=== PATIENT | male | born 1985 | race Caucasian/White ===

== ENCOUNTER 2019-06-21 21:32 | Emergency (ER) | payer OTHER, MEDICAID, SELFPAY ==
[2019-06-21 21:35] VITALS: BP 127/88; PULSE 82; RESP 24; TEMP 36.9; O2SAT 100; BMI 29.9
--- NOTE | 2019-06-21 21:38 | ED_ITS ---
HPI - General Adult General Chief complaint: Chest Pain Stated complaint: chest tightness,shakey,note feeling well Time Seen by Provider: 06/21/19 21:35 Source: patient Mode of arrival: ambulatory Limitations: no limitations History of Present Illness HPI narrative: 34-year-old male with history of generalized anxiety and depression. He also admits to having history of substance abuse. Was treated earlier today for gonorrhea and Chlamydia with antibiotics. He states that this evening he started having feelings of chest tightness and also feelings of being stabbed in the back of his neck and also feeling like his head is under water. He he states he is concerned about losing consciousness. He has had panic attacks in the past but they have never lasted this long. Describes chest pain and shortness of breath. Has not tried anything for symptoms prior to her Related Data Home Medications Medication Instructions Recorded Confirmed clonidine HCl PO BID #0 08/11/16 pantoprazole [Protonix] PO QDAY #30 tab 08/11/16 Previous Rx's Medication Instructions Recorded cyclobenzaprine 10 mg PO Q8HP PRN #20 tab 08/11/16 cyclobenzaprine 10 mg PO TID PRN #12 tab 06/21/19 Allergies Allergy/AdvReac Type Severity Reaction Status Date / Time cat dander [CAT DANDER] Allergy Unknown Verified 06/21/19 21:42 Sulfa (Sulfonamide Allergy Unknown Verified 06/21/19 21:42 Antibiotics) [SULFA (SULFONAMIDE ANTIBIOTICS)] SEASONAL Allergy Unknown Uncoded 02/20/18 12:13 Review of Systems Constitutional Denies fever(s) and Denies headache(s) ENT Ears, Nose, Mouth, and Throat: Denies headache(s) Cardiovascular Reports chest pain and Reports dyspnea Respiratory Reports dyspnea Gastrointestinal Gastrointestinal: Denies abdominal pain Musculoskeletal Comments: Stabbing pain in his neck Integumentary/Breasts Denies rash Neurologic Denies headache(s) Psychiatric Reports anxiety Hematologic/Lymphatic Denies easy bleeding and Denies easy bruising FOR[facility], LAT[facility] Medical History Anxiety (Acute) Depression (Acute) Substance abuse (Acute) Social History lives independently: Yes Social History lives independently: Yes Exam Initial Vital Signs Initial Vital Signs: Vital Signs Temperature 98.5 F 06/21/19 21:35 Pulse Rate 82 06/21/19 21:35 Respiratory Rate 24 06/21/19 21:35 Blood Pressure 127/88 06/21/19 21:35 Pulse Oximetry 100 06/21/19 21:35 Const General: cooperative, well developed, well groomed and anxious Orientation: alert and awake Resp Effort & Inspection: normal respiratory effort Auscultation: clear to auscultation bilaterally Cardio Rate: tachycardic Rhythm: regular rhythm Pulses: radial pulses present Skin Lesions: no lesions Rashes: no rashes Neuro General: alert and awake Cognition: normal cognition Extrem General: normal to inspection and capillary refill normal Psych Appearance: grossly normal and well kempt Speech and Movement: restless Mood: anxious mood Attitude: cooperative Course Orders Ordered: ED Orders 06/21/19 21:35 EKG-12 Lead Stat Discontinued Medications Lorazepam (Ativan) 1 mg IV NOW ONE Stop: 06/21/19 21:52 Last Admin: 06/21/19 22:03 Dose: 1 mg Vital Signs - 8 hr 06/21/19 21:35 Temperature 98.5 F Pulse Rate 82 Respiratory Rate 24 Blood Pressure 127/88 Pulse Oximetry 100 Medical Decision Making ECG Data Attestation: I personally reviewed and interpreted this ECG as follows: Prior ECG tracings: not available for review Interpretation: Sinus tachycardia Ventricular rate of 103 Normal axis Normal QRS Normal QTC No ST T wave changes MDM Narrative Medical decision making narrative: Patient feels somewhat better after the Ativan. His EKG is unremarkable. Low suspicion for ACS. Low suspicion for PE. The suspicion for pneumonia. He has a clear lung exam. Will hold on further workup for now. I do suspect that his neck pain is musculoskeletal. Will send home with a prepack of Flexeril He was given return precautions. Expressed understanding and agreement with plan. Discharge Plan Departure Patient Disposition: Home Clinical Impression: Chest wall pain, Muscle spasm, Anxiety Instructions: DI for Muscle Spasm Activity Restrictions/Additional Instructions: Take the muscle relaxers as directed. These medications can make you drowsy so no driving while you are taking them. You can also take Tylenol and/or ibuprofen for any discomfort. Contact your primary provider for a follow-up. Return to the emergency department for any new symptoms Prescriptions: New cyclobenzaprine 10 mg tablet 10 mg PO TID PRN (Reason: muscle spasm) Qty: 12 RF: 0 No Action clonidine HCl 0.1 mg tablet PO BID Qty: 0 RF: 0 pantoprazole [Protonix] 20 mg tablet,delayed release (DR/EC) PO QDAY Qty: 30 RF: 0 cyclobenzaprine 10 MG tablet 10 mg PO Q8HP PRNQty: 20 RF: 0
[2019-06-21] MEDS: LORazepam 2 MG/ML INJ 1 MG IV (22:03)
--- NOTE | 2019-06-21 23:30 | PC.NURSE ---
Pt states that he wants to leave, informed pt that due to receiving ativan earlier that he needs a ride and that nursing staff need to see ride. Pt states he is going to leave and wait in his car. Informed pt that this RN cannot agree to that. Dr. Golden informed, security is also aware. [id number]-Pt removed his PIV. Speaking with Dr. Golden. Stating that he is going to leave. [id number]-Pt left with security. Dr Golden aware. Pt left without receiving paperwork or prepack.
== END 2019-06-21 23:50 | disposition left against medical advice (07) ==
PROVIDERS: Emergency Provider Emergency Medicine
DX: M62.838 Other muscle spasm (principal); F41.9 Anxiety disorder, unspecified; R07.9 Chest pain, unspecified; Z53.20 Procedure and treatment not carried out because of patient's decision for unspecified reasons
CPT/HCPCS: 36591; 93005; 93010; 96374; 99282; 99284; J2060

== ENCOUNTER 2021-03-17 14:50 | Emergency (ER) | payer OTHER, MEDICAID, SELFPAY ==
[2021-03-17] VITALS (17 sets, daily range): BP systolic 105–117; BP diastolic 58–75; PULSE 78–107; RESP 16–51; TEMP 36.9; O2SAT 96–100; BMI 23.5
--- NOTE | 2021-03-17 15:59 | DI.RAD.S_ITS ---
PROCEDURE: XR CHEST 1V INDICATIONS: chest pain TECHNIQUE: One view of the chest was acquired. COMPARISON: [facility], , CHEST 1 VIEW, 08/11/2016, 12:57. FINDINGS: Surgical changes and devices: None. Lungs and pleura: Lungs are clear. No pleural effusions or pneumothorax. Mediastinum: Mediastinal contours appear normal. Heart size is normal. Bones and chest wall: No suspicious bony lesions. Overlying soft tissues appear unremarkable. IMPRESSION: No acute disease. Dictated by: Tom Richardson M.D. on 03/17/2021 at 16:18 Approved by: Tom Richardson M.D. on 03/17/2021 at 16:19
--- NOTE | 2021-03-17 16:00 | PC.NURSE ---
pt's father states pt has back pain, is nauseated, and having chest pain. RT called for EKG. IV placed. Chest pain order set placed and made aware
[2021-03-17 16:11] LABS: Add Manual Diff / Slide Review NO; Basophils Absolute Auto 0 /uL (0-100); Basophils Percent Auto 0.2 % (0-2); Eosinophils Absolute Auto 100 /uL (0-450); Hematocrit 39.9 % (41-53); Hemoglobin 13.7 g/dL (13.5-17.5); Lymphocytes Absolute Auto 1500 /uL (1100-4500); Lymphocytes Percent Auto 13.1 % (25-40); Mean Corpuscular HGB Conc 34.2 % (30-36); Mean Corpuscular Hemoglobin 30.1 PG (26-34); Monocytes Absolute Auto 1800 /uL (0-900); Monocytes Percent Auto 15.8 % (3-14); Neutrophils Absolute Auto 7900 /uL (1500-7000); Neutrophils Percent Auto 69.9 % (50-75); Platelet Count 326 X10^3/uL (150-400); Red Blood Cell Count 4.53 X10^6/uL (4.5-5.9); Red Cell Distribution Width 14.3 % (11.6-14.8); White Blood Cell Count 11.4 X10^3/uL (4.5-11.0)
--- NOTE | 2021-03-17 16:14 | ED_ITS ---
HPI - Back Pain/Injury <Alayna Mccarthy DO - Last Filed: 03/18/21 07:07> General Chief Complaint: Back Pain/Injury Stated Complaint: everything hurts, back hurts Time Seen by Provider: 03/17/21 16:00 Source: patient Mode of arrival: Ambulatory Limitations: no limitations History of Present Illness HPI Narrative: Patient is a 35-year-old male who presents with for right id of complaints. He says for about the last 2 weeks he has had body aches all over. He says he just does not feel quite right. He said a couple of days ago the he was putting a car part in when his vision got dark and. He has had some decreased sensation on the left side of his body. He has pins and needles going through his chest. He denies any rigors or sweats. He has no severe cough or shortness of breath. He has been having some blood in his urine off and on for a few days as well. No nausea vomiting or abdominal pain. He travels a lot and lives in his car but is currently staying with his parents. He has an anxiety disorder for which he takes medication for. Onset (ago): week(s) Related Data Home Medications Medication Instructions Recorded Confirmed clonidine HCl PO BID #0 08/11/16 pantoprazole [Protonix] PO QDAY #30 tab 08/11/16 Previous Rx's Medication Instructions Recorded cyclobenzaprine 10 mg PO Q8HP PRN #20 tab 08/11/16 cyclobenzaprine 10 mg PO TID PRN #12 tab 06/21/19 Allergies Allergy/AdvReac Type Severity Reaction Status Date / Time cat dander [CAT DANDER] Allergy Unknown Verified 06/21/19 21:42 Sulfa (Sulfonamide Allergy Unknown Verified 06/21/19 21:42 Antibiotics) [SULFA (SULFONAMIDE ANTIBIOTICS)] SEASONAL Allergy Unknown Uncoded 02/20/18 12:13 Review of Systems <DO Carissa Le Last Filed: 03/18/21 07:07> Review of Systems ROS Unobtainable: All systems reviewed & are unremarkable except as noted in HPI and below Constitutional Constitutional: Reports body ache(s), Denies chills, Denies fever(s), Reports headache(s) and Denies weakness Eyes Eyes: Reports other visual disturbances (Blackening that lasted just a few s econds 2 days ago) ENT Ears, Nose, Mouth, and Throat: Reports headache(s), Denies nose pain and Denies sore throat Cardiovascular Cardiovascular: Reports chest pain, Denies irregular heart rhythm, Denies lightheadedness, Denies palpitations, Denies dyspnea, Denies dyspnea on exertion and Denies orthopnea Respiratory Respiratory: Denies cough, Denies dyspnea, Denies dyspnea on exertion and Denies wheezing Gastrointestinal Gastrointestinal: Denies abdominal pain, Denies change in bowel habits, Denies diarrhea, Denies nausea and Denies vomiting Musculoskeletal Musculoskeletal: Denies back pain and Denies myalgias Integumentary/Breasts Skin/Breast: Denies pruritus, Denies erythema, Denies rash and Denies wounds Neurologic Neurologic: Reports headache(s), Reports sensory deficit and Denies weakness Endocrine Endocrine: Denies palpitations Allergic/Immunologic Allergic/Immunologic: Denies wheezing Patient History <Alayna Mccarthy DO - Last Filed: 03/18/21 07:07> Medical History (Updated 03/17/21 @ 23:51 by Tiki Yang MD) Anxiety Depression Substance abuse Social History lives independently: Yes Smoking Status: Current every day smoker Smoking Status: Current every day smoker tobacco type: cigarettes Substance Use Type: marijuana Exam <Alayna Mccarthy DO - Last Filed: 03/18/21 07:07> Initial Vital Signs Initial Vital Signs: Vital Signs Temperature 98.4 F 03/17/21 14:57 Pulse Rate 100 H 03/17/21 14:57 Respiratory Rate 16 03/17/21 14:57 Blood Pressure 115/73 03/17/21 14:57 Pulse Oximetry 100 03/17/21 14:57 GENERAL: Slightly does shuffled 35-year-old male and in no acute distress. HEENT: Head atraumatic,EOMI, pupils reactive, face symmetric, moist mucous membranes, no Kernig or Brudzinski sign CARDIOVASCULAR: Regular rate and rhythm without murmurs, rubs or gallops. RESPIRATORY: Breath sounds equal bilaterally, no wheezes rales or rhonchi. ABDOMEN: Soft, nontender. Normoactive bowel sounds all 4 quadrants. No guardin g or rebound. EXTREMITIES: Normal range of motion, no clubbing or edema. Neurovascularly intact NEUROLOGICAL: Alert and oriented x4.Normal gait and speech. Cranial nerves II through XII grossly intact. Good [id number], good [id number], strength equal bilaterally, no dysarthria or aphasia, slight decreased sensation to light touch on left side, no visual changes, no facial droop SKIN: Warm, dry, no laceration, no petechiae, no rashes or lesions. <Mikey Golden DO - Last Filed: 03/17/21 19:27> Initial Vital Signs Initial Vital Signs: Vital Signs Temperature 98.4 F 03/17/21 14:57 Pulse Rate 100 H 03/17/21 14:57 Respiratory Rate 16 03/17/21 14:57 Blood Pressure 115/73 03/17/21 14:57 Pulse Oximetry 100 03/17/21 14:57 <Tiki Yang MD - Last Filed: 03/18/21 01:04> Initial Vital Signs Initial Vital Signs: Vital Signs Temperature 98.4 F 03/17/21 14:57 Pulse Rate 100 H 03/17/21 14:57 Respiratory Rate 16 03/17/21 14:57 Blood Pressure 115/73 03/17/21 14:57 Pulse Oximetry 100 03/17/21 14:57 Course <Alayna Mccarthy DO - Last Filed: 03/18/21 07:07> Orders Ordered: ED Orders 03/17/21 22:56 CT angio head and neck Stat Discontinued Medications Azithromycin (Azithromycin 250 Mg Tablet) 1,000 mg PO NOW ONE Stop: 03/17/21 19:13 Last Admin: 03/17/21 19:18 Dose: 1,000 mg Documented by: JESSIE Ceftriaxone Sodium/Dextrose (Rocephin) 1 gm in 50 mls @ 100 mls/hr IV NOW ONE Stop: 03/17/21 17:18 Last Infusion: 03/17/21 17:27 Dose: 0 mls/hr Documented by: Admin: 03/17/21 16:57 Dose: 100 mls/hr Documented by: ALISON Ketorolac Tromethamine (Ketorolac 30 Mg/Ml Vial) 15 mg IV NOW ONE Stop: 03/17/21 16:15 Last Admin: 03/17/21 16:29 Dose: 15 mg Documented by: JGODFREY Ondansetron HCl (Ondansetron 4 Mg/2 Ml Inj) 4 mg IV NOW ONE Stop: 03/17/21 20:47 Last Admin: 03/17/21 20:48 Dose: Not Given Documented by: JESSIE Vital Signs Vital signs: Vital Signs - 8 hr 03/17/21 23:30 03/18/21 00:00 03/18/21 01:14 Pulse Rate 86 95 H 95 H Blood Pressure 105/74 Pulse Oximetry 100 100 99 <Mikey Golden DO - Last Filed: 03/17/21 19:27> Orders Ordered: ED Orders 03/17/21 22:56 CT angio head and neck Stat Discontinued Medications Azithromycin (Azithromycin 250 Mg Tablet) 1,000 mg PO NOW ONE Stop: 03/17/21 19:13 Last Admin: 03/17/21 19:18 Dose: 1,000 mg Documented by: JESSIE Ceftriaxone Sodium/Dextrose (Rocephin) 1 gm in 50 mls @ 100 mls/hr IV NOW ONE Stop: 03/17/21 17:18 Last Infusion: 03/17/21 17:27 Dose: 0 mls/hr Documented by: Admin: 03/17/21 16:57 Dose: 100 mls/hr Documented by: ALISON Ketorolac Tromethamine (Ketorolac 30 Mg/Ml Vial) 15 mg IV NOW ONE Stop: 03/17/21 16:15 Last Admin: 03/17/21 16:29 Dose: 15 mg Documented by: JESSIE Ondansetron HCl (Ondansetron 4 Mg/2 Ml Inj) 4 mg IV NOW ONE Stop: 03/17/21 20:47 Last Admin: 03/17/21 20:48 Dose: Not Given Documented by: JESSIE Vital Signs Vital signs: Vital Signs - 8 hr 03/17/21 23:30 03/18/21 00:00 03/18/21 01:14 Pulse Rate 86 95 H 95 H Blood Pressure 105/74 Pulse Oximetry 100 100 99 <Tiki Yang MD - Last Filed: 03/18/21 01:04> Orders Ordered: ED Orders 03/17/21 22:56 CT angio head and neck Stat Discontinued Medications Azithromycin (Azithromycin 250 Mg Tablet) 1,000 mg PO NOW ONE Stop: 03/17/21 19:13 Last Admin: 03/17/21 19:18 Dose: 1,000 mg Documented by: JESSIE Ceftriaxone Sodium/Dextrose (Rocephin) 1 gm in 50 mls @ 100 mls/hr IV NOW ONE Stop: 03/17/21 17:18 Last Infusion: 03/17/21 17:27 Dose: 0 mls/hr Documented by: Admin: 03/17/21 16:57 Dose: 100 mls/hr Documented by: ALISON Ketorolac Tromethamine (Ketorolac 30 Mg/Ml Vial) 15 mg IV NOW ONE Stop: 03/17/21 16:15 Last Admin: 03/17/21 16:29 Dose: 15 mg Documented by: JESSIE Ondansetron HCl (Ondansetron 4 Mg/2 Ml Inj) 4 mg IV NOW ONE Stop: 03/17/21 20:47 Last Admin: 03/17/21 20:48 Dose: Not Given Documented by: JESSIE Vital Signs Vital signs: Vital Signs - 8 hr 03/17/21 23:30 03/18/21 00:00 03/18/21 01:14 Pulse Rate 86 95 H 95 H Blood Pressure 105/74 Pulse Oximetry 100 100 99 MDM - Back Pain/Injury <Alayna Mccarthy DO - Last Filed: 03/18/21 07:07> Lab Data Result diagrams: 03/17/21 15:57 03/17/21 15:57 Labs: Lab Results 03/17/21 03/17/21 03/17/21 Range/Units 15:57 15:57 15:57 WBC 11.4 H (4.5-11.0) X10^3/uL RBC 4.53 (4.5-5.9) X10^6/uL Hgb 13.7 (13.5-17.5) g/dL Hct 39.9 L (41-53) % MCV 88.0 (80-100) fL MCH 30.1 (26-34) PG MCHC 34.2 (30-36) % RDW 14.3 (11.6-14.8) % Plt Count 326 (150-400) X10^3/uL Neut % (Auto) 69.9 (50-75) % Lymph % (Auto) 13.1 L (25-40) % [place] % (Auto) 15.8 H (3-14) % Eos % (Auto) 1.0 L (2-4) % Baso % (Auto) 0.2 (0-2) % Neut # (Auto) 7900 H (0984-6798) /uL Lymph # (Auto) 1500 (5640-7144) /uL [place] # (Auto) 1800 H (0-900) /uL Eos # (Auto) 100 (0-450) /uL Baso # (Auto) 0 (0-100) /uL PT 14.6 H (10.1-12.7) SECONDS INR 1.3 (0.9-1.3) APTT 37 H (26.4-36.2) SECONDS Sodium 133 L (137-145) mmol/L Potassium 3.8 (3.4-5.1) mmol/L Chloride 98 (98-107) mmol/L Carbon Dioxide 25 (22-32) mmol/L BUN 14 (9-20) mg/dL Creatinine 0.79 (0.66-1.25) mg/dL Estimated GFR > 60.0 (>60) mL/min BUN/Creatinine Ratio 17.7 (6-22) Glucose 101 H (70-100) mg/dL Lactate (0.7-2.1) mmol/L Calcium 9.0 (8.4-10.2) mg/dL Total Bilirubin 0.6 (0.2-1.3) mg/dL AST 23 (17-59) IU/L ALT 27 (<50) IU/L Alkaline Phosphatase 97 (38-126) U/L Total Creatine Kinase 39 L (55-170) U/L CK-MB (CK-2) TNP CK-MB (CK-2) Rel Index TNP Troponin I < 0.012 (0.01-0.034) ng/mL C-Reactive Protein (<1.0) mg/dL Total Protein 7.2 (6.3-8.2) g/dL Albumin 3.7 (3.5-5.0) g/dL Globulin 3.5 (1.7-4.1) g/dL Albumin/Globulin Ratio 1.1 (1.0-2.8) Lipase 104 (23-300) U/L Procalcitonin (<0.5) ng/mL Urine Color Urine Appearance Urine pH (4.5-8.0) Ur Specific [place] (1.000-1.035) Urine Protein (Negative) Urine Glucose (UA) (Negative) g/dL Urine Ketones (NEGATIVE) Urine Occult Blood (Negative) Urine Nitrate (Negative) Urine Bilirubin (NEGATIVE) Urine Urobilinogen (0.2) E.U./dL Ur Leukocyte Esterase (NEGATIVE) Urine RBC (0-5/HPF) Urine WBC (0-5/HPF) Ur Squamous Epith Cells (0-5/HPF) Urine Bacteria (None) Ur Culture Indicated? U Opiates 300ng/mL cut (Negative) Ur Oxycodone Screen (Negative) Urine Methadone Screen (Negative) Ur Barbiturates Screen (Negative) U Tricyclic Antidepress (Negative) Ur Phencyclidine Scrn (Negative) Ur Amphetamines Screen (Negative) U Methamphetamines Scrn (Negative) Ur MDMA Scrn (Ecstasy) (Negative) U Benzodiazepines Scrn (Negative) Urine Cocaine Screen (Negative) U Marijuana (THC) Screen (Negative) Ur Chlamydia DNA (PCR) SARS-CoV-2 (PCR) (Negative) N gonorrhoeae DNA (PCR) 03/17/21 03/17/21 03/17/21 Range/Units 15:57 15:57 15:57 WBC (4.5-11.0) X10^3/uL RBC (4.5-5.9) X10^6/uL Hgb (13.5-17.5) g/dL Hct (41-53) % MCV (80-100) fL MCH (26-34) PG MCHC (30-36) % RDW (11.6-14.8) % Plt Count (150-400) X10^3/uL Neut % (Auto) (50-75) % Lymph % (Auto) (25-40) % [place] % (Auto) (3-14) % Eos % (Auto) (2-4) % Baso % (Auto) (0-2) % Neut # (Auto) (6245-6851) /uL Lymph # (Auto) (5857-2697) /uL [place] # (Auto) (0-900) /uL Eos # (Auto) (0-450) /uL Baso # (Auto) (0-100) /uL PT (10.1-12.7) SECONDS INR (0.9-1.3) APTT (26.4-36.2) SECONDS Sodium (137-145) mmol/L Potassium (3.4-5.1) mmol/L Chloride (98-107) mmol/L Carbon Dioxide (22-32) mmol/L BUN (9-20) mg/dL Creatinine (0.66-1.25) mg/dL Estimated GFR (>60) mL/min BUN/Creatinine Ratio (6-22) Glucose (70-100) mg/dL Lactate 1.0 (0.7-2.1) mmol/L Calcium (8.4-10.2) mg/dL Total Bilirubin (0.2-1.3) mg/dL AST (17-59) IU/L ALT (<50) IU/L Alkaline Phosphatase (38-126) U/L Total Creatine Kinase (55-170) U/L CK-MB (CK-2) CK-MB (CK-2) Rel Index Troponin I (0.01-0.034) ng/mL C-Reactive Protein 36.5 H (<1.0) mg/dL Total Protein (6.3-8.2) g/dL Albumin (3.5-5.0) g/dL Globulin (1.7-4.1) g/dL Albumin/Globulin Ratio (1.0-2.8) Lipase (23-300) U/L Procalcitonin 0.47 (<0.5) ng/mL Urine Color Urine Appearance Urine pH (4.5-8.0) Ur Specific [place] (1.000-1.035) Urine Protein (Negative) Urine Glucose (UA) (Negative) g/dL Urine Ketones (NEGATIVE) Urine Occult Blood (Negative) Urine Nitrate (Negative) Urine Bilirubin (NEGATIVE) Urine Urobilinogen (0.2) E.U./dL Ur Leukocyte Esterase (NEGATIVE) Urine RBC (0-5/HPF) Urine WBC (0-5/HPF) Ur Squamous Epith Cells (0-5/HPF) Urine Bacteria (None) Ur Culture Indicated? U Opiates 300ng/mL cut (Negative) Ur Oxycodone Screen (Negative) Urine Methadone Screen (Negative) Ur Barbiturates Screen (Negative) U Tricyclic Antidepress (Negative) Ur Phencyclidine Scrn (Negative) Ur Amphetamines Screen (Negative) U Methamphetamines Scrn (Negative) Ur MDMA Scrn (Ecstasy) (Negative) U Benzodiazepines Scrn (Negative) Urine Cocaine Screen (Negative) U Marijuana (THC) Screen (Negative) Ur Chlamydia DNA (PCR) SARS-CoV-2 (PCR) (Negative) N gonorrhoeae DNA (PCR) 03/17/21 03/17/21 03/17/21 Range/Units 16:30 16:30 16:46 WBC (4.5-11.0) X10^3/uL RBC (4.5-5.9) X10^6/uL Hgb (13.5-17.5) g/dL Hct (41-53) % MCV (80-100) fL MCH (26-34) PG MCHC (30-36) % RDW (11.6-14.8) % Plt Count (150-400) X10^3/uL Neut % (Auto) (50-75) % Lymph % (Auto) (25-40) % [place] % (Auto) (3-14) % Eos % (Auto) (2-4) % Baso % (Auto) (0-2) % Neut # (Auto) (8937-6154) /uL Lymph # (Auto) (9847-0429) /uL [place] # (Auto) (0-900) /uL Eos # (Auto) (0-450) /uL Baso # (Auto) (0-100) /uL PT (10.1-12.7) SECONDS INR (0.9-1.3) APTT (26.4-36.2) SECONDS Sodium (137-145) mmol/L Potassium (3.4-5.1) mmol/L Chloride (98-107) mmol/L Carbon Dioxide (22-32) mmol/L BUN (9-20) mg/dL Creatinine (0.66-1.25) mg/dL Estimated GFR (>60) mL/min BUN/Creatinine Ratio (6-22) Glucose (70-100) mg/dL Lactate (0.7-2.1) mmol/L Calcium (8.4-10.2) mg/dL Total Bilirubin (0.2-1.3) mg/dL AST (17-59) IU/L ALT (<50) IU/L Alkaline Phosphatase (38-126) U/L Total Creatine Kinase (55-170) U/L CK-MB (CK-2) CK-MB (CK-2) Rel Index Troponin I (0.01-0.034) ng/mL C-Reactive Protein (<1.0) mg/dL Total Protein (6.3-8.2) g/dL Albumin (3.5-5.0) g/dL Globulin (1.7-4.1) g/dL Albumin/Globulin Ratio (1.0-2.8) Lipase (23-300) U/L Procalcitonin (<0.5) ng/mL Urine Color Yellow Urine Appearance Cloudy Urine pH 6.5 (4.5-8.0) Ur Specific [place] 1.010 (1.000-1.035) Urine Protein 1+ H (Negative) Urine Glucose (UA) Negative (Negative) g/dL Urine Ketones Negative (NEGATIVE) Urine Occult Blood 1+ H (Negative) Urine Nitrate Positive (Negative) Urine Bilirubin Negative (NEGATIVE) Urine Urobilinogen 2.0 H (0.2) E.U./dL Ur Leukocyte Esterase 2+ H (NEGATIVE) Urine RBC 0-1/hpf (0-5/HPF) Urine WBC >100/hpf H (0-5/HPF) Ur Squamous Epith Cells 0-1 /hpf (0-5/HPF) Urine Bacteria Many (>30) H (None) Ur Culture Indicated? Specimen cultured U Opiates 300ng/mL cut Negative (Negative) Ur Oxycodone Screen Negative (Negative) Urine Methadone Screen Negative (Negative) Ur Barbiturates Screen Negative (Negative) U Tricyclic Antidepress Negative (Negative) Ur Phencyclidine Scrn Negative (Negative) Ur Amphetamines Screen Positive H (Negative) U Methamphetamines Scrn Positive H (Negative) Ur MDMA Scrn (Ecstasy) Negative (Negative) U Benzodiazepines Scrn Negative (Negative) Urine Cocaine Screen Negative (Negative) U Marijuana (THC) Screen Negative (Negative) Ur Chlamydia DNA (PCR) Cancelled SARS-CoV-2 (PCR) (Negative) N gonorrhoeae DNA (PCR) Cancelled 03/17/21 Range/Units 18:10 WBC (4.5-11.0) X10^3/uL RBC (4.5-5.9) X10^6/uL Hgb (13.5-17.5) g/dL Hct (41-53) % MCV (80-100) fL MCH (26-34) PG MCHC (30-36) % RDW (11.6-14.8) % Plt Count (150-400) X10^3/uL Neut % (Auto) (50-75) % Lymph % (Auto) (25-40) % [place] % (Auto) (3-14) % Eos % (Auto) (2-4) % Baso % (Auto) (0-2) % Neut # (Auto) (3086-1269) /uL Lymph # (Auto) (8415-8386) /uL [place] # (Auto) (0-900) /uL Eos # (Auto) (0-450) /uL Baso # (Auto) (0-100) /uL PT (10.1-12.7) SECONDS INR (0.9-1.3) APTT (26.4-36.2) SECONDS Sodium (137-145) mmol/L Potassium (3.4-5.1) mmol/L Chloride (98-107) mmol/L Carbon Dioxide (22-32) mmol/L BUN (9-20) mg/dL Creatinine (0.66-1.25) mg/dL Estimated GFR (>60) mL/min BUN/Creatinine Ratio (6-22) Glucose (70-100) mg/dL Lactate (0.7-2.1) mmol/L Calcium (8.4-10.2) mg/dL Total Bilirubin (0.2-1.3) mg/dL AST (17-59) IU/L ALT (<50) IU/L Alkaline Phosphatase (38-126) U/L Total Creatine Kinase (55-170) U/L CK-MB (CK-2) CK-MB (CK-2) Rel Index Troponin I (0.01-0.034) ng/mL C-Reactive Protein (<1.0) mg/dL Total Protein (6.3-8.2) g/dL Albumin (3.5-5.0) g/dL Globulin (1.7-4.1) g/dL Albumin/Globulin Ratio (1.0-2.8) Lipase (23-300) U/L Procalcitonin (<0.5) ng/mL Urine Color Urine Appearance Urine pH (4.5-8.0) Ur Specific [place] (1.000-1.035) Urine Protein (Negative) Urine Glucose (UA) (Negative) g/dL Urine Ketones (NEGATIVE) Urine Occult Blood (Negative) Urine Nitrate (Negative) Urine Bilirubin (NEGATIVE) Urine Urobilinogen (0.2) E.U./dL Ur Leukocyte Esterase (NEGATIVE) Urine RBC (0-5/HPF) Urine WBC (0-5/HPF) Ur Squamous Epith Cells (0-5/HPF) Urine Bacteria (None) Ur Culture Indicated? U Opiates 300ng/mL cut (Negative) Ur Oxycodone Screen (Negative) Urine Methadone Screen (Negative) Ur Barbiturates Screen (Negative) U Tricyclic Antidepress (Negative) Ur Phencyclidine Scrn (Negative) Ur Amphetamines Screen (Negative) U Methamphetamines Scrn (Negative) Ur MDMA Scrn (Ecstasy) (Negative) U Benzodiazepines Scrn (Negative) Urine Cocaine Screen (Negative) U Marijuana (THC) Screen (Negative) Ur Chlamydia DNA (PCR) SARS-CoV-2 (PCR) Negative (Negative) N gonorrhoeae DNA (PCR) MDM Narrative Medical decision making narrative: Patient has a variety of vague symptoms. He currently has nitrates in his urine with UTI like symptoms he is given 1 dose of Rocephin. His rest of blood work and imaging are pending. Patient is signed out to Dr. Golden. 03/18/21-I have reviewed chart of events that transpired last evening. Patient was not sent home with antibiotics. Patient was called this morning and started on Bactrim. Culture and sensitivity pending. Patient has elevated CRP and procalcitonin within obvious UTI gonorrhea chlamydia are pending he was treated for those with azithromycin and Rocephin. However will continue antibiotics untill further results <Mikey Golden DO - Last Filed: 03/17/21 19:27> Lab Data Labs: Lab Results 03/17/21 03/17/21 03/17/21 Range/Units 15:57 15:57 15:57 WBC 11.4 H (4.5-11.0) X10^3/uL RBC 4.53 (4.5-5.9) X10^6/uL Hgb 13.7 (13.5-17.5) g/dL Hct 39.9 L (41-53) % MCV 88.0 (80-100) fL MCH 30.1 (26-34) PG MCHC 34.2 (30-36) % RDW 14.3 (11.6-14.8) % Plt Count 326 (150-400) X10^3/uL Neut % (Auto) 69.9 (50-75) % Lymph % (Auto) 13.1 L (25-40) % [place] % (Auto) 15.8 H (3-14) % Eos % (Auto) 1.0 L (2-4) % Baso % (Auto) 0.2 (0-2) % Neut # (Auto) 7900 H (7522-4424) /uL Lymph # (Auto) 1500 (1352-5768) /uL [place] # (Auto) 1800 H (0-900) /uL Eos # (Auto) 100 (0-450) /uL Baso # (Auto) 0 (0-100) /uL PT 14.6 H (10.1-12.7) SECONDS INR 1.3 (0.9-1.3) APTT 37 H (26.4-36.2) SECONDS Sodium 133 L (137-145) mmol/L Potassium 3.8 (3.4-5.1) mmol/L Chloride 98 (98-107) mmol/L Carbon Dioxide 25 (22-32) mmol/L BUN 14 (9-20) mg/dL Creatinine 0.79 (0.66-1.25) mg/dL Estimated GFR > 60.0 (>60) mL/min BUN/Creatinine Ratio 17.7 (6-22) Glucose 101 H (70-100) mg/dL Lactate (0.7-2.1) mmol/L Calcium 9.0 (8.4-10.2) mg/dL Total Bilirubin 0.6 (0.2-1.3) mg/dL AST 23 (17-59) IU/L ALT 27 (<50) IU/L Alkaline Phosphatase 97 (38-126) U/L Total Creatine Kinase 39 L (55-170) U/L CK-MB (CK-2) TNP CK-MB (CK-2) Rel Index TNP Troponin I < 0.012 (0.01-0.034) ng/mL C-Reactive Protein (<1.0) mg/dL Total Protein 7.2 (6.3-8.2) g/dL Albumin 3.7 (3.5-5.0) g/dL Globulin 3.5 (1.7-4.1) g/dL Albumin/Globulin Ratio 1.1 (1.0-2.8) Lipase 104 (23-300) U/L Procalcitonin (<0.5) ng/mL Urine Color Urine Appearance Urine pH (4.5-8.0) Ur Specific [place] (1.000-1.035) Urine Protein (Negative) Urine Glucose (UA) (Negative) g/dL Urine Ketones (NEGATIVE) Urine Occult Blood (Negative) Urine Nitrate (Negative) Urine Bilirubin (NEGATIVE) Urine Urobilinogen (0.2) E.U./dL Ur Leukocyte Esterase (NEGATIVE) Urine RBC (0-5/HPF) Urine WBC (0-5/HPF) Ur Squamous Epith Cells (0-5/HPF) Urine Bacteria (None) Ur Culture Indicated? U Opiates 300ng/mL cut (Negative) Ur Oxycodone Screen (Negative) Urine Methadone Screen (Negative) Ur Barbiturates Screen (Negative) U Tricyclic Antidepress (Negative) Ur Phencyclidine Scrn (Negative) Ur Amphetamines Screen (Negative) U Methamphetamines Scrn (Negative) Ur MDMA Scrn (Ecstasy) (Negative) U Benzodiazepines Scrn (Negative) Urine Cocaine Screen (Negative) U Marijuana (THC) Screen (Negative) Ur Chlamydia DNA (PCR) SARS-CoV-2 (PCR) (Negative) N gonorrhoeae DNA (PCR) 03/17/21 03/17/21 03/17/21 Range/Units 15:57 15:57 15:57 WBC (4.5-11.0) X10^3/uL RBC (4.5-5.9) X10^6/uL Hgb (13.5-17.5) g/dL Hct (41-53) % MCV (80-100) fL MCH (26-34) PG MCHC (30-36) % RDW (11.6-14.8) % Plt Count (150-400) X10^3/uL Neut % (Auto) (50-75) % Lymph % (Auto) (25-40) % [place] % (Auto) (3-14) % Eos % (Auto) (2-4) % Baso % (Auto) (0-2) % Neut # (Auto) (9455-9452) /uL Lymph # (Auto) (6760-4797) /uL [place] # (Auto) (0-900) /uL Eos # (Auto) (0-450) /uL Baso # (Auto) (0-100) /uL PT (10.1-12.7) SECONDS INR (0.9-1.3) APTT (26.4-36.2) SECONDS Sodium (137-145) mmol/L Potassium (3.4-5.1) mmol/L Chloride (98-107) mmol/L Carbon Dioxide (22-32) mmol/L BUN (9-20) mg/dL Creatinine (0.66-1.25) mg/dL Estimated GFR (>60) mL/min BUN/Creatinine Ratio (6-22) Glucose (70-100) mg/dL Lactate 1.0 (0.7-2.1) mmol/L Calcium (8.4-10.2) mg/dL Total Bilirubin (0.2-1.3) mg/dL AST (17-59) IU/L ALT (<50) IU/L Alkaline Phosphatase (38-126) U/L Total Creatine Kinase (55-170) U/L CK-MB (CK-2) CK-MB (CK-2) Rel Index Troponin I (0.01-0.034) ng/mL C-Reactive Protein 36.5 H (<1.0) mg/dL Total Protein (6.3-8.2) g/dL Albumin (3.5-5.0) g/dL Globulin (1.7-4.1) g/dL Albumin/Globulin Ratio (1.0-2.8) Lipase (23-300) U/L Procalcitonin 0.47 (<0.5) ng/mL Urine Color Urine Appearance Urine pH (4.5-8.0) Ur Specific [place] (1.000-1.035) Urine Protein (Negative) Urine Glucose (UA) (Negative) g/dL Urine Ketones (NEGATIVE) Urine Occult Blood (Negative) Urine Nitrate (Negative) Urine Bilirubin (NEGATIVE) Urine Urobilinogen (0.2) E.U./dL Ur Leukocyte Esterase (NEGATIVE) Urine RBC (0-5/HPF) Urine WBC (0-5/HPF) Ur Squamous Epith Cells (0-5/HPF) Urine Bacteria (None) Ur Culture Indicated? U Opiates 300ng/mL cut (Negative) Ur Oxycodone Screen (Negative) Urine Methadone Screen (Negative) Ur Barbiturates Screen (Negative) U Tricyclic Antidepress (Negative) Ur Phencyclidine Scrn (Negative) Ur Amphetamines Screen (Negative) U Methamphetamines Scrn (Negative) Ur MDMA Scrn (Ecstasy) (Negative) U Benzodiazepines Scrn (Negative) Urine Cocaine Screen (Negative) U Marijuana (THC) Screen (Negative) Ur Chlamydia DNA (PCR) SARS-CoV-2 (PCR) (Negative) N gonorrhoeae DNA (PCR) 03/17/21 03/17/21 03/17/21 Range/Units 16:30 16:30 16:46 WBC (4.5-11.0) X10^3/uL RBC (4.5-5.9) X10^6/uL Hgb (13.5-17.5) g/dL Hct (41-53) % MCV (80-100) fL MCH (26-34) PG MCHC (30-36) % RDW (11.6-14.8) % Plt Count (150-400) X10^3/uL Neut % (Auto) (50-75) % Lymph % (Auto) (25-40) % [place] % (Auto) (3-14) % Eos % (Auto) (2-4) % Baso % (Auto) (0-2) % Neut # (Auto) (0977-7574) /uL Lymph # (Auto) (6268-7901) /uL [place] # (Auto) (0-900) /uL Eos # (Auto) (0-450) /uL Baso # (Auto) (0-100) /uL PT (10.1-12.7) SECONDS INR (0.9-1.3) APTT (26.4-36.2) SECONDS Sodium (137-145) mmol/L Potassium (3.4-5.1) mmol/L Chloride (98-107) mmol/L Carbon Dioxide (22-32) mmol/L BUN (9-20) mg/dL Creatinine (0.66-1.25) mg/dL Estimated GFR (>60) mL/min BUN/Creatinine Ratio (6-22) Glucose (70-100) mg/dL Lactate (0.7-2.1) mmol/L Calcium (8.4-10.2) mg/dL Total Bilirubin (0.2-1.3) mg/dL AST (17-59) IU/L ALT (<50) IU/L Alkaline Phosphatase (38-126) U/L Total Creatine Kinase (55-170) U/L CK-MB (CK-2) CK-MB (CK-2) Rel Index Troponin I (0.01-0.034) ng/mL C-Reactive Protein (<1.0) mg/dL Total Protein (6.3-8.2) g/dL Albumin (3.5-5.0) g/dL Globulin (1.7-4.1) g/dL Albumin/Globulin Ratio (1.0-2.8) Lipase (23-300) U/L Procalcitonin (<0.5) ng/mL Urine Color Yellow Urine Appearance Cloudy Urine pH 6.5 (4.5-8.0) Ur Specific [place] 1.010 (1.000-1.035) Urine Protein 1+ H (Negative) Urine Glucose (UA) Negative (Negative) g/dL Urine Ketones Negative (NEGATIVE) Urine Occult Blood 1+ H (Negative) Urine Nitrate Positive (Negative) Urine Bilirubin Negative (NEGATIVE) Urine Urobilinogen 2.0 H (0.2) E.U./dL Ur Leukocyte Esterase 2+ H (NEGATIVE) Urine RBC 0-1/hpf (0-5/HPF) Urine WBC >100/hpf H (0-5/HPF) Ur Squamous Epith Cells 0-1 /hpf (0-5/HPF) Urine Bacteria Many (>30) H (None) Ur Culture Indicated? Specimen cultured U Opiates 300ng/mL cut Negative (Negative) Ur Oxycodone Screen Negative (Negative) Urine Methadone Screen Negative (Negative) Ur Barbiturates Screen Negative (Negative) U Tricyclic Antidepress Negative (Negative) Ur Phencyclidine Scrn Negative (Negative) Ur Amphetamines Screen Positive H (Negative) U Methamphetamines Scrn Positive H (Negative) Ur MDMA Scrn (Ecstasy) Negative (Negative) U Benzodiazepines Scrn Negative (Negative) Urine Cocaine Screen Negative (Negative) U Marijuana (THC) Screen Negative (Negative) Ur Chlamydia DNA (PCR) Cancelled SARS-CoV-2 (PCR) (Negative) N gonorrhoeae DNA (PCR) Cancelled 03/17/21 Range/Units 18:10 WBC (4.5-11.0) X10^3/uL RBC (4.5-5.9) X10^6/uL Hgb (13.5-17.5) g/dL Hct (41-53) % MCV (80-100) fL MCH (26-34) PG MCHC (30-36) % RDW (11.6-14.8) % Plt Count (150-400) X10^3/uL Neut % (Auto) (50-75) % Lymph % (Auto) (25-40) % [place] % (Auto) (3-14) % Eos % (Auto) (2-4) % Baso % (Auto) (0-2) % Neut # (Auto) (0214-9336) /uL Lymph # (Auto) (6484-2987) /uL [place] # (Auto) (0-900) /uL Eos # (Auto) (0-450) /uL Baso # (Auto) (0-100) /uL PT (10.1-12.7) SECONDS INR (0.9-1.3) APTT (26.4-36.2) SECONDS Sodium (137-145) mmol/L Potassium (3.4-5.1) mmol/L Chloride (98-107) mmol/L Carbon Dioxide (22-32) mmol/L BUN (9-20) mg/dL Creatinine (0.66-1.25) mg/dL Estimated GFR (>60) mL/min BUN/Creatinine Ratio (6-22) Glucose (70-100) mg/dL Lactate (0.7-2.1) mmol/L Calcium (8.4-10.2) mg/dL Total Bilirubin (0.2-1.3) mg/dL AST (17-59) IU/L ALT (<50) IU/L Alkaline Phosphatase (38-126) U/L Total Creatine Kinase (55-170) U/L CK-MB (CK-2) CK-MB (CK-2) Rel Index Troponin I (0.01-0.034) ng/mL C-Reactive Protein (<1.0) mg/dL Total Protein (6.3-8.2) g/dL Albumin (3.5-5.0) g/dL Globulin (1.7-4.1) g/dL Albumin/Globulin Ratio (1.0-2.8) Lipase (23-300) U/L Procalcitonin (<0.5) ng/mL Urine Color Urine Appearance Urine pH (4.5-8.0) Ur Specific [place] (1.000-1.035) Urine Protein (Negative) Urine Glucose (UA) (Negative) g/dL Urine Ketones (NEGATIVE) Urine Occult Blood (Negative) Urine Nitrate (Negative) Urine Bilirubin (NEGATIVE) Urine Urobilinogen (0.2) E.U./dL Ur Leukocyte Esterase (NEGATIVE) Urine RBC (0-5/HPF) Urine WBC (0-5/HPF) Ur Squamous Epith Cells (0-5/HPF) Urine Bacteria (None) Ur Culture Indicated? U Opiates 300ng/mL cut (Negative) Ur Oxycodone Screen (Negative) Urine Methadone Screen (Negative) Ur Barbiturates Screen (Negative) U Tricyclic Antidepress (Negative) Ur Phencyclidine Scrn (Negative) Ur Amphetamines Screen (Negative) U Methamphetamines Scrn (Negative) Ur MDMA Scrn (Ecstasy) (Negative) U Benzodiazepines Scrn (Negative) Urine Cocaine Screen (Negative) U Marijuana (THC) Screen (Negative) Ur Chlamydia DNA (PCR) SARS-CoV-2 (PCR) Negative (Negative) N gonorrhoeae DNA (PCR) Imaging Data Chest x-ray: Radiologist's Impression: No acute disease CT scan - head: Radiologist's Impression: Ill-defined hypodensities in the frontal subcortical white matter may in fact be artifactual. However given the patient's age in symptoms, follow-up MRI could be considered to exclude underlying white matter disease such as vasculitis or less likely encephalitis MDM Narrative Medical decision making narrative: Dr Golden: Received turned over from Dr. Mccarthy. Reviewed patient's history and physical. He has received Rocephin for urinary tract infection. His chest x-ray is unremarkable. His head CT shows abnormalities which could be artifactual given his other presenting symptoms I do feel that an MRI is warranted. We are able to get that this evening from the emergency department. I did discuss this with the patient. We did discuss the findings on the CT scan. Care turned over to Dr. yang to follow-up with MRI result and disposition. <Tiki Yang MD - Last Filed: 03/18/21 01:04> Medical Records Attestation: I reviewed the patient's medical records. Lab Data Attestation: I reviewed the patient's lab results. Labs: Lab Results 03/17/21 03/17/21 03/17/21 Range/Units 15:57 15:57 15:57 WBC 11.4 H (4.5-11.0) X10^3/uL RBC 4.53 (4.5-5.9) X10^6/uL Hgb 13.7 (13.5-17.5) g/dL Hct 39.9 L (41-53) % MCV 88.0 (80-100) fL MCH 30.1 (26-34) PG MCHC 34.2 (30-36) % RDW 14.3 (11.6-14.8) % Plt Count 326 (150-400) X10^3/uL Neut % (Auto) 69.9 (50-75) % Lymph % (Auto) 13.1 L (25-40) % [place] % (Auto) 15.8 H (3-14) % Eos % (Auto) 1.0 L (2-4) % Baso % (Auto) 0.2 (0-2) % Neut # (Auto) 7900 H (7044-6794) /uL Lymph # (Auto) 1500 (3430-2095) /uL [place] # (Auto) 1800 H (0-900) /uL Eos # (Auto) 100 (0-450) /uL Baso # (Auto) 0 (0-100) /uL PT 14.6 H (10.1-12.7) SECONDS INR 1.3 (0.9-1.3) APTT 37 H (26.4-36.2) SECONDS Sodium 133 L (137-145) mmol/L Potassium 3.8 (3.4-5.1) mmol/L Chloride 98 (98-107) mmol/L Carbon Dioxide 25 (22-32) mmol/L BUN 14 (9-20) mg/dL Creatinine 0.79 (0.66-1.25) mg/dL Estimated GFR > 60.0 (>60) mL/min BUN/Creatinine Ratio 17.7 (6-22) Glucose 101 H (70-100) mg/dL Lactate (0.7-2.1) mmol/L Calcium 9.0 (8.4-10.2) mg/dL Total Bilirubin 0.6 (0.2-1.3) mg/dL AST 23 (17-59) IU/L ALT 27 (<50) IU/L Alkaline Phosphatase 97 (38-126) U/L Total Creatine Kinase 39 L (55-170) U/L CK-MB (CK-2) TNP CK-MB (CK-2) Rel Index TNP Troponin I < 0.012 (0.01-0.034) ng/mL C-Reactive Protein (<1.0) mg/dL Total Protein 7.2 (6.3-8.2) g/dL Albumin 3.7 (3.5-5.0) g/dL Globulin 3.5 (1.7-4.1) g/dL Albumin/Globulin Ratio 1.1 (1.0-2.8) Lipase 104 (23-300) U/L Procalcitonin (<0.5) ng/mL Urine Color Urine Appearance Urine pH (4.5-8.0) Ur Specific [place] (1.000-1.035) Urine Protein (Negative) Urine Glucose (UA) (Negative) g/dL Urine Ketones (NEGATIVE) Urine Occult Blood (Negative) Urine Nitrate (Negative) Urine Bilirubin (NEGATIVE) Urine Urobilinogen (0.2) E.U./dL Ur Leukocyte Esterase (NEGATIVE) Urine RBC (0-5/HPF) Urine WBC (0-5/HPF) Ur Squamous Epith Cells (0-5/HPF) Urine Bacteria (None) Ur Culture Indicated? U Opiates 300ng/mL cut (Negative) Ur Oxycodone Screen (Negative) Urine Methadone Screen (Negative) Ur Barbiturates Screen (Negative) U Tricyclic Antidepress (Negative) Ur Phencyclidine Scrn (Negative) Ur Amphetamines Screen (Negative) U Methamphetamines Scrn (Negative) Ur MDMA Scrn (Ecstasy) (Negative) U Benzodiazepines Scrn (Negative) Urine Cocaine Screen (Negative) U Marijuana (THC) Screen (Negative) Ur Chlamydia DNA (PCR) SARS-CoV-2 (PCR) (Negative) N gonorrhoeae DNA (PCR) 03/17/21 03/17/21 03/17/21 Range/Units 15:57 15:57 15:57 WBC (4.5-11.0) X10^3/uL RBC (4.5-5.9) X10^6/uL Hgb (13.5-17.5) g/dL Hct (41-53) % MCV (80-100) fL MCH (26-34) PG MCHC (30-36) % RDW (11.6-14.8) % Plt Count (150-400) X10^3/uL Neut % (Auto) (50-75) % Lymph % (Auto) (25-40) % [place] % (Auto) (3-14) % Eos % (Auto) (2-4) % Baso % (Auto) (0-2) % Neut # (Auto) (5734-9348) /uL Lymph # (Auto) (0685-3750) /uL [place] # (Auto) (0-900) /uL Eos # (Auto) (0-450) /uL Baso # (Auto) (0-100) /uL PT (10.1-12.7) SECONDS INR (0.9-1.3) APTT (26.4-36.2) SECONDS Sodium (137-145) mmol/L Potassium (3.4-5.1) mmol/L Chloride (98-107) mmol/L Carbon Dioxide (22-32) mmol/L BUN (9-20) mg/dL Creatinine (0.66-1.25) mg/dL Estimated GFR (>60) mL/min BUN/Creatinine Ratio (6-22) Glucose (70-100) mg/dL Lactate 1.0 (0.7-2.1) mmol/L Calcium (8.4-10.2) mg/dL Total Bilirubin (0.2-1.3) mg/dL AST (17-59) IU/L ALT (<50) IU/L Alkaline Phosphatase (38-126) U/L Total Creatine Kinase (55-170) U/L CK-MB (CK-2) CK-MB (CK-2) Rel Index Troponin I (0.01-0.034) ng/mL C-Reactive Protein 36.5 H (<1.0) mg/dL Total Protein (6.3-8.2) g/dL Albumin (3.5-5.0) g/dL Globulin (1.7-4.1) g/dL Albumin/Globulin Ratio (1.0-2.8) Lipase (23-300) U/L Procalcitonin 0.47 (<0.5) ng/mL Urine Color Urine Appearance Urine pH (4.5-8.0) Ur Specific [place] (1.000-1.035) Urine Protein (Negative) Urine Glucose (UA) (Negative) g/dL Urine Ketones (NEGATIVE) Urine Occult Blood (Negative) Urine Nitrate (Negative) Urine Bilirubin (NEGATIVE) Urine Urobilinogen (0.2) E.U./dL Ur Leukocyte Esterase (NEGATIVE) Urine RBC (0-5/HPF) Urine WBC (0-5/HPF) Ur Squamous Epith Cells (0-5/HPF) Urine Bacteria (None) Ur Culture Indicated? U Opiates 300ng/mL cut (Negative) Ur Oxycodone Screen (Negative) Urine Methadone Screen (Negative) Ur Barbiturates Screen (Negative) U Tricyclic Antidepress (Negative) Ur Phencyclidine Scrn (Negative) Ur Amphetamines Screen (Negative) U Methamphetamines Scrn (Negative) Ur MDMA Scrn (Ecstasy) (Negative) U Benzodiazepines Scrn (Negative) Urine Cocaine Screen (Negative) U Marijuana (THC) Screen (Negative) Ur Chlamydia DNA (PCR) SARS-CoV-2 (PCR) (Negative) N gonorrhoeae DNA (PCR) 03/17/21 03/17/21 03/17/21 Range/Units 16:30 16:30 16:46 WBC (4.5-11.0) X10^3/uL RBC (4.5-5.9) X10^6/uL Hgb (13.5-17.5) g/dL Hct (41-53) % MCV (80-100) fL MCH (26-34) PG MCHC (30-36) % RDW (11.6-14.8) % Plt Count (150-400) X10^3/uL Neut % (Auto) (50-75) % Lymph % (Auto) (25-40) % [place] % (Auto) (3-14) % Eos % (Auto) (2-4) % Baso % (Auto) (0-2) % Neut # (Auto) (9049-3704) /uL Lymph # (Auto) (2537-9370) /uL [place] # (Auto) (0-900) /uL Eos # (Auto) (0-450) /uL Baso # (Auto) (0-100) /uL PT (10.1-12.7) SECONDS INR (0.9-1.3) APTT (26.4-36.2) SECONDS Sodium (137-145) mmol/L Potassium (3.4-5.1) mmol/L Chloride (98-107) mmol/L Carbon Dioxide (22-32) mmol/L BUN (9-20) mg/dL Creatinine (0.66-1.25) mg/dL Estimated GFR (>60) mL/min BUN/Creatinine Ratio (6-22) Glucose (70-100) mg/dL Lactate (0.7-2.1) mmol/L Calcium (8.4-10.2) mg/dL Total Bilirubin (0.2-1.3) mg/dL AST (17-59) IU/L ALT (<50) IU/L Alkaline Phosphatase (38-126) U/L Total Creatine Kinase (55-170) U/L CK-MB (CK-2) CK-MB (CK-2) Rel Index Troponin I (0.01-0.034) ng/mL C-Reactive Protein (<1.0) mg/dL Total Protein (6.3-8.2) g/dL Albumin (3.5-5.0) g/dL Globulin (1.7-4.1) g/dL Albumin/Globulin Ratio (1.0-2.8) Lipase (23-300) U/L Procalcitonin (<0.5) ng/mL Urine Color Yellow Urine Appearance Cloudy Urine pH 6.5 (4.5-8.0) Ur Specific [place] 1.010 (1.000-1.035) Urine Protein 1+ H (Negative) Urine Glucose (UA) Negative (Negative) g/dL Urine Ketones Negative (NEGATIVE) Urine Occult Blood 1+ H (Negative) Urine Nitrate Positive (Negative) Urine Bilirubin Negative (NEGATIVE) Urine Urobilinogen 2.0 H (0.2) E.U./dL Ur Leukocyte Esterase 2+ H (NEGATIVE) Urine RBC 0-1/hpf (0-5/HPF) Urine WBC >100/hpf H (0-5/HPF) Ur Squamous Epith Cells 0-1 /hpf (0-5/HPF) Urine Bacteria Many (>30) H (None) Ur Culture Indicated? Specimen cultured U Opiates 300ng/mL cut Negative (Negative) Ur Oxycodone Screen Negative (Negative) Urine Methadone Screen Negative (Negative) Ur Barbiturates Screen Negative (Negative) U Tricyclic Antidepress Negative (Negative) Ur Phencyclidine Scrn Negative (Negative) Ur Amphetamines Screen Positive H (Negative) U Methamphetamines Scrn Positive H (Negative) Ur MDMA Scrn (Ecstasy) Negative (Negative) U Benzodiazepines Scrn Negative (Negative) Urine Cocaine Screen Negative (Negative) U Marijuana (THC) Screen Negative (Negative) Ur Chlamydia DNA (PCR) Cancelled SARS-CoV-2 (PCR) (Negative) N gonorrhoeae DNA (PCR) Cancelled 03/17/21 Range/Units 18:10 WBC (4.5-11.0) X10^3/uL RBC (4.5-5.9) X10^6/uL Hgb (13.5-17.5) g/dL Hct (41-53) % MCV (80-100) fL MCH (26-34) PG MCHC (30-36) % RDW (11.6-14.8) % Plt Count (150-400) X10^3/uL Neut % (Auto) (50-75) % Lymph % (Auto) (25-40) % [place] % (Auto) (3-14) % Eos % (Auto) (2-4) % Baso % (Auto) (0-2) % Neut # (Auto) (5371-5382) /uL Lymph # (Auto) (5422-0997) /uL [place] # (Auto) (0-900) /uL Eos # (Auto) (0-450) /uL Baso # (Auto) (0-100) /uL PT (10.1-12.7) SECONDS INR (0.9-1.3) APTT (26.4-36.2) SECONDS Sodium (137-145) mmol/L Potassium (3.4-5.1) mmol/L Chloride (98-107) mmol/L Carbon Dioxide (22-32) mmol/L BUN (9-20) mg/dL Creatinine (0.66-1.25) mg/dL Estimated GFR (>60) mL/min BUN/Creatinine Ratio (6-22) Glucose (70-100) mg/dL Lactate (0.7-2.1) mmol/L Calcium (8.4-10.2) mg/dL Total Bilirubin (0.2-1.3) mg/dL AST (17-59) IU/L ALT (<50) IU/L Alkaline Phosphatase (38-126) U/L Total Creatine Kinase (55-170) U/L CK-MB (CK-2) CK-MB (CK-2) Rel Index Troponin I (0.01-0.034) ng/mL C-Reactive Protein (<1.0) mg/dL Total Protein (6.3-8.2) g/dL Albumin (3.5-5.0) g/dL Globulin (1.7-4.1) g/dL Albumin/Globulin Ratio (1.0-2.8) Lipase (23-300) U/L Procalcitonin (<0.5) ng/mL Urine Color Urine Appearance Urine pH (4.5-8.0) Ur Specific [place] (1.000-1.035) Urine Protein (Negative) Urine Glucose (UA) (Negative) g/dL Urine Ketones (NEGATIVE) Urine Occult Blood (Negative) Urine Nitrate (Negative) Urine Bilirubin (NEGATIVE) Urine Urobilinogen (0.2) E.U./dL Ur Leukocyte Esterase (NEGATIVE) Urine RBC (0-5/HPF) Urine WBC (0-5/HPF) Ur Squamous Epith Cells (0-5/HPF) Urine Bacteria (None) Ur Culture Indicated? U Opiates 300ng/mL cut (Negative) Ur Oxycodone Screen (Negative) Urine Methadone Screen (Negative) Ur Barbiturates Screen (Negative) U Tricyclic Antidepress (Negative) Ur Phencyclidine Scrn (Negative) Ur Amphetamines Screen (Negative) U Methamphetamines Scrn (Negative) Ur MDMA Scrn (Ecstasy) (Negative) U Benzodiazepines Scrn (Negative) Urine Cocaine Screen (Negative) U Marijuana (THC) Screen (Negative) Ur Chlamydia DNA (PCR) SARS-CoV-2 (PCR) Negative (Negative) N gonorrhoeae DNA (PCR) Imaging Data CT scan - head: Radiologist's Impression: FINDINGS: Image quality: Excellent. CSF spaces: Basal cisterns are patent. No extra-axial fluid collections. Ventricles are normal in size and shape. Brain: No midline shift. No intracranial masses or hemorrhage. Almaraz-white matter interface is normal. In the bifrontal white matter, there are at least 2 ill- defined foci of low attenuation, each measuring less than 1 cm. No mass effect or midline shift. Skull and face: Calvarium and visualized facial bones are intact, without suspicious lesions. Sinuses: Visualized sinuses and mastoids are clear. IMPRESSION: Ill-defined hypodensities in frontal subcortical white matter may in fact be artifactual. However, given the patient's age and symptoms, follow-up MRI could be considered to exclude underlying white matter disease such as vasculitis or less likely encephalitis. Dictated by: Armand Olmstead M.D. on 03/17/2021 at 15:45 MR head and brain with and without contrast: Radiologist's Impression: COMPARISON: [facility], CT, CT HEAD/BRAIN WO CON, 03/17/2021, 16:29. FINDINGS: Image quality: Excellent. CSF Spaces: Basal cisterns are patent. No extra-axial fluid collections. Ventricles are normal in size and shape. Brain: No midline shift. No intracranial bleeds or masses. Mild degree of patchy high FLAIR signal within the periventricular and subcortical white matter. No abnormal intracranial enhancement. The brainstem appears normal. Diffusion-weighted images demonstrate no acute ischemic insults. No chronic ischemic insults. Normal intravascular flow voids are present. Skull and face: Calvarial marrow is normal in signal. Orbits appear normal. Sinuses: Sinuses and mastoids appear clear. IMPRESSION: 1. Mild degree of nonspecific white matter disease. Differential considerations include demyelinating disorder such as multiple sclerosis, vasculitides, diabetes mellitus, and migraines. 2. No acute process. No recent infarct. Dictated by: Jose Luis Avalos M.D. on 03/17/2021 at 21:28 MDM Narrative Medical decision making narrative: 35-year-old gentleman with the history of anxiety disorder, methamphetamine use disorder, homelessness who presents with a myriad of symptoms both psychiatric and neurologic. Complains of significant headache that is been going on for a number of weeks and getting worse. Intermittent episodes of vision abnormalities that resolved, decreased sensation to the left side of his body that he had not realized was present until today. Labs are notable for a mild leukocytosis with a white count of 11.4, chemistries are unremarkable with the exception of C reactive protein significantly elevated at 36.5. He was noted to have a urinary tract infection and treated with IV ceftriaxone which should be adequate for single dose treatment. He was also given a g of azithromycin with STI testing for gonorrhea and chlamydia sent. He describes no recent sexual contact. CT scan revealed ill-defined densities in the frontal subcortical white matter. With his significant headache and left-sided paresthesia and MRI was done which shows nonspecific white matter disease with differential mentioned including demyelinating disorder such as multiple sclerosis, vasculitides, diabetes and migraine. Blood sugars are unremarkable he has no prior history of diabetes and no history of chronic headache to suggest migraine. He is re-examined with minimal change to overall symptoms. CT and MRI of brain are electronically sent to [facility] for Neurology review. Will discuss appropriate disposition with neurology, unclear whether this needs is hospital admission and further workup or outpatient follow-up knowing that this patient has no primary care physician in little access to healthcare. [id number] studies and case are reviewed with Dr. Braswell, neuro hospitalist. Given the results of the MR he feels that MS is far less likely and does not think that vasculitides are problematic at this time. More common explanation is likely from his chronic methamphetamine use. He did recommend a CTA of the head neck to see if there are any acute stenoses to suggest stroke-like syndrome. If the CTA is normal, he recommended discharge home with outpatient Neurology follow-up Findings and discussion reviewed with patient and his father. CTA is ordered Discharge Plan Departure Patient Disposition: Home Clinical Impression: Myalgia, Methamphetamine use disorder, severe Headache Qualifiers: Headache type: unspecified Headache chronicity pattern: episodic headache Intractability: not intractable Qualified Code(s): R51.9 - Headache, unspecified Depression Qualifiers: Depression Type: unspecified Qualified Code(s): F32.9 - Major depressive disorder, single episode, unspecified Instructions: DI for Headache Activity Restrictions/Additional Instructions: Thank you for coming in today Your workup in the emergency room included blood work that did not show evidence of overwhelming infection, kidney failure, liver failure, stroke or heart attack. You had a number of imaging studies including a CT scan of your head that showed some minor abnormalities but no evidence of acute bleeding, most tumors or masses. Because of the minor abnormalities appreciated on the CT scan you also had an MRI of your brain with and without contrast. This also showed some nonspecific changes in the white matter portion of your brain but did not seem to be multiple sclerosis, vasculitis or other problems that would need hospital admission. The imaging studies were reviewed with Neurology specialist at [facility] in [place]. He recommended doing a final imaging study looking at the blood vessels from your heart through your head to make sure that there were no blood flow limiting areas that might suggest stroke. This final study was also unremarkable. At this point, most likely diagnosis is complications from your methamphetamine use anxiety and depression all culminating in your muscles hurting and the significant headache. The best treatment will be avoiding completely methamphetamine, regular sleeping, regular eating and drinking to allow your body to heal. We did give you the name of your counselor and I would encourage you to call him to reestablish care. I would also recommend scheduling appointment with your primary care physician I hope you feel better Prescriptions: No Action clonidine HCl 0.1 mg tablet PO BID Qty: 0 RF: 0 pantoprazole [Protonix] 20 mg tablet,delayed release (DR/EC) PO QDAY Qty: 30 RF: 0 cyclobenzaprine 10 MG tablet 10 mg PO Q8HP PRNQty: 20 RF: 0 cyclobenzaprine 10 mg tablet 10 mg PO TID PRN (Reason: muscle spasm) Qty: 12 RF: 0
[2021-03-17 16:19] LABS: INR 1.3 (0.9-1.3); Prothrombin Time 14.6 SECONDS (10.1-12.7)
[2021-03-17 16:22] LABS: PTT Partial Thromboplastin Tim 37 SECONDS (26.4-36.2)
[2021-03-17 16:23] LABS: Alanine Aminotransferase 27 IU/L (<50); Albumin 3.7 g/dL (3.5-5.0); Albumin Globulin Ratio 1.1 (1.0-2.8); Alkaline Phosphatase 97 U/L (38-126); Aspartate Aminotransferase 23 IU/L (17-59); BUN Creatinine Ratio 17.7 (6-22); Bilirubin Total 0.6 mg/dL (0.2-1.3); Blood Urea Nitrogen 14 mg/dL (9-20); Carbon Dioxide 25 mmol/L (22-32); Chloride 98 mmol/L (98-107); Creatine Kinase 39 U/L (55-170); Estimated Glomerular Filt Rate > 60.0 mL/min (>60); Globulin 3.5 g/dL (1.7-4.1); Glucose 101 mg/dL (70-100); HEMOLYSIS < 15 (0-50); Lipase 104 U/L (23-300); Potassium 3.8 mmol/L (3.4-5.1); Sodium 133 mmol/L (137-145); Total Protein 7.2 g/dL (6.3-8.2)
--- NOTE | 2021-03-17 16:24 | DI.CT.S_ITS ---
PROCEDURE: CT HEAD/BRAIN WO CON INDICATIONS: severe headache TECHNIQUE: Noncontrast 4.5 mm thick angled axial sections acquired from the foramen magnum to the vertex, with coronal and sagittal reformats. For radiation dose reduction, the following was used: automated exposure control, adjustment of mA and/or kV according to patient size. COMPARISON: None. FINDINGS: Image quality: Excellent. CSF spaces: Basal cisterns are patent. No extra-axial fluid collections. Ventricles are normal in size and shape. Brain: No midline shift. No intracranial masses or hemorrhage. Almaraz-white matter interface is normal. In the bifrontal white matter, there are at least 2 ill-defined foci of low attenuation, each measuring less than 1 cm. No mass effect or midline shift. Skull and face: Calvarium and visualized facial bones are intact, without suspicious lesions. Sinuses: Visualized sinuses and mastoids are clear. IMPRESSION: Ill-defined hypodensities in frontal subcortical white matter may in fact be artifactual. However, given the patient's age and symptoms, follow-up MRI could be considered to exclude underlying white matter disease such as vasculitis or less likely encephalitis. Dictated by: Armand Olmstead M.D. on 03/17/2021 at 15:45 Approved by: Armand Olmstead M.D. on 03/17/2021 at 15:54
[2021-03-17] MEDS: KETOROLAC 30 MG/ML VIAL 15 MG IV (16:29)
[2021-03-17 16:34] LABS: Troponin I < 0.012 ng/mL (0.01-0.034)
[2021-03-17 16:38] LABS: Appearance Urine UA CLOUDY; Bilirubin Urine UA NEGATIVE (NEGATIVE); Color Urine UA YELLOW; Glucose Urine UA NEGATIVE (Negative); Ketones Urine UA NEGATIVE (NEGATIVE); Leukocyte Esterase Urine UA 2+ (NEGATIVE); Nitrite Urine UA POSITIVE (Negative); Occult Blood Urine UA 1+ (Negative); Protein Urine UA 1+ (Negative); pH Urine UA 6.5 (4.5-8.0)
[2021-03-17 16:46] LABS: Bacteria Urine Many (>30); Culture Indicated Urine Specimen Cultured; RBC Urine 0-1/HPF (0-5/HPF); Squamous Epithelial Cell Urine 0-1 /HPF (0-5/HPF); WBC Urine >100/HPF (0-5/HPF)
[2021-03-17 16:50] LABS: UR Morphine/Opiate cutoff 300 Negative (Negative); Ur Creatinine Normal (Normal); Ur Specific Gravity Normal (Normal); Urine Amphetamines Positive (Negative); Urine Barbiturates Negative (Negative); Urine Benzodiazepines Negative (Negative); Urine Cocaine Negative (Negative); Urine MDMA Negative (Negative); Urine Methadone Negative (Negative); Urine Methamphetamines Positive (Negative); Urine Oxycodone Negative (Negative); Urine Phencyclidine Negative (Negative); Urine Tetrahydrocannabinol Negative (Negative); Urine Tricyclic Antidepressant Negative (Negative); Urine pH Normal (Normal)
[2021-03-17] MEDS: CEFTRIAXONE 1 GM/50 ML FROZ.PIGGY IV (16:57)
[2021-03-17 17:18] LABS: Procalcitonin 0.47 ng/mL (<0.5)
[2021-03-17 18:33] LABS: COVID19 -Nasal RAPID Negative (Negative)
--- NOTE | 2021-03-17 19:03 | DI.MRI.S_ITS ---
PROCEDURE: MR HEAD/BRAIN WO/W CON INDICATIONS: Abnormal findings seen on CT scan TECHNIQUE: Noncontrast axial T1 spin echo, axial T2 fast spin echo, sagittal and axial FLAIR, coronal T2 fast spin echo, axial gradient echo, axial diffusion and ADC through the brain. After the administration of contrast, axial and coronal 3D VIBE or T1 spin echo with fat saturation through the brain. COMPARISON: [facility], CT, CT HEAD/BRAIN WO CON, 03/17/2021, 16:29. FINDINGS: Image quality: Excellent. CSF Spaces: Basal cisterns are patent. No extra-axial fluid collections. Ventricles are normal in size and shape. Brain: No midline shift. No intracranial bleeds or masses. Mild degree of patchy high FLAIR signal within the periventricular and subcortical white matter. No abnormal intracranial enhancement. The brainstem appears normal. Diffusion-weighted images demonstrate no acute ischemic insults. No chronic ischemic insults. Normal intravascular flow voids are present. Skull and face: Calvarial marrow is normal in signal. Orbits appear normal. Sinuses: Sinuses and mastoids appear clear. IMPRESSION: 1. Mild degree of nonspecific white matter disease. Differential considerations include demyelinating disorder such as multiple sclerosis, vasculitides, diabetes mellitus, and migraines. 2. No acute process. No recent infarct. Dictated by: Jose Luis Avalos M.D. on 03/17/2021 at 21:28 Approved by: Jose Luis Avalos M.D. on 03/17/2021 at 21:30
[2021-03-17] MEDS: AZITHROMYCIN 250 MG TABLET 1000 MG PO (19:18)
[2021-03-17 19:58] LABS: C-Reactive Protein Quant 36.5 mg/dL (<1.0)
--- NOTE | 2021-03-17 20:02 | CM.SWNOTE ---
ANCHOR TACK PULLER note ANCHOR TACK PULLER consult requested for patient. Patient is a 35 y/o male who presents to this ED due to back pain. Per verbal report from Dr. Golden, patient is currently experiencing homelessless and living with his family. ANCHOR TACK PULLER consult requested to offer any additional resources or referrals. ANCHOR TACK PULLER enters room and meets with patient. Patient is A+O x4, slightly dysthymic affect/congruent with mood. Patient's thought process is circumtantial to tangential, and patient does present with some delusions. Patient denies SI/HI. Patient explains that he previously worked for a [employer], became disillusioned with the work, quit, and started travelling and living out of his van. Patient reports he is only in town for a few days, but is open to reconnecting with his counselor, Marino Berumen [facility], in [place]. ANCHOR TACK PULLER offers to put phone number for Marino eBrumen in d/c notes and patient agreeable to this. ANCHOR TACK PULLER provides phone number for Marino Berumen to Dr. Boykin, who will place it in d/c notes. Plan: Patient to continue course of care while in ED. BUCK Chadwick
--- NOTE | 2021-03-17 20:46 | PC.NURSE ---
MRI called and pt vomiting in MRI. Order for Zofran received and given to pt.
[2021-03-17] MEDS: ONDANSETRON 4 MG/2 ML INJ (20:48)
--- NOTE | 2021-03-17 22:56 | DI.CT.S_ITS ---
PROCEDURE: CT ANGIO HEAD AND NECK INDICATIONS: abnormal MRI, Left side paresthesia, neurology request TECHNIQUE: After the administration of intravenous contrast, 1 mm thick sections acquired from the aortic arch through the [place]. Post-contrast 4.5 mm thick sections then re-acquired from the foramen magnum to the vertex. 3-dimensional kusqynh-zpyfrnkmq-cmwvnoysoa (MIP) and/or volume rendering reformats were acquired of the central intracranial vasculature and neck separately. COMPARISON: [facility], MR, MR HEAD/BRAIN WO/W CON, 03/17/2021, 20:08. [facility], CT, CT HEAD/BRAIN WO CON, 03/17/2021, 16:29. FINDINGS: Image quality: Excellent. BRAIN: CSF spaces: Basal cisterns are patent. No extra-axial fluid collections. Ventricles are normal in size and shape. Brain: No intracranial hematoma collections, mass, or mass effect. Almaraz-white matter interface appears preserved. A few indistinct subcortical and periventricular white matter hypodensities are redemonstrated bilaterally most prominent within the left frontal lobe. No abnormal intracranial enhancement. Skull and face: Calvarium and facial bones appear intact, without suspicious lesions. Orbits appear normal. Sinuses: Sinuses and mastoids are clear. HEAD CT ANGIOGRAPHY: Anterior circulation: Intracranial internal carotid arteries are normal in size and appear patent bilaterally. There is mild atherosclerotic calcification along the cavernous segments of the internal carotid arteries. The paired anterior cerebral arteries appear patent bilaterally. The anterior communicating artery also appears patent. The middle cerebral arteries appear patent bilaterally. No high-grade stenosis, occlusion, or filling defects. No cerebral aneurysms identified. The vessels appear smooth in contour without strictures. Posterior circulation: Visualized portions of the vertebral arteries demonstrate normal caliber, and join to form a patent basilar artery. The posterior cerebral arteries appears patent bilaterally. No high-grade stenosis, occlusion, or filling defects. No cerebral aneurysms identified. Vessels appear smooth in contour without strictures. NECK CT ANGIOGRAPHY: Carotid system: The great vessels demonstrate a conventional anatomy as they arise from the aortic arch. The origins of the common carotid arteries appear patent. The common carotid arteries demonstrate normal caliber and courses. The bifurcation regions are both widely patent. The internal carotid arteries demonstrate normal calibers and courses. The vessels appear smooth in contour without strictures or definite wall thickening. Posterior circulation: The origins of the vertebral arteries both appear patent. The more superior extracranial portions of both vertebral arteries also demonstrate normal courses and calibers. They join to form a patent basilar artery. There is a right dominant vertebrobasilar system. The vessels appear smooth in contour without strictures or definite wall thickening. Soft tissues: Visualized neck soft tissues demonstrate no suspicious abnormalities. Bones: No suspicious bony lesions. Visualized cervical spine appears normally aligned. IMPRESSION: 1. No arterial strictures or wall thickening to suggest vasculitis. 2. No high-grade stenosis or occlusion of the central intracranial arteries. 3. No high-grade stenosis or occlusion of the head and neck arteries. The carotid bulbs appear widely patent. 4. Scattered subcortical and periventricular white matter hypodensities redemonstrated most prominent within the inferior left frontal lobe. 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 Any quantitative measurements of stenosis were performed using NASCET criteria. Dictated by: Blake Domínguez M.D. on 03/18/2021 at 7:55 Approved by: Blake Domínguez M.D. on 03/18/2021 at 8:03
[2021-03-18] VITALS: PULSE 95; O2SAT 100
[2021-03-18 01:14] VITALS: BP 105/74; PULSE 95; O2SAT 99
[2021-03-19 00:07] LABS: Chlamydia trachomatis NAA Negative (Negative); Neisseria gonorrhoeae NAA Negative (Negative)
== END 2021-03-18 01:19 | disposition home or self-care (01) ==
PROVIDERS: Emergency Medicine; Emergency Provider Emergency Medicine
DX: F15.20 Other stimulant dependence, uncomplicated (principal); F32.9 Major depressive disorder, single episode, unspecified; R51.9 Headache, unspecified; F41.9 Anxiety disorder, unspecified; M79.10 Myalgia, unspecified site; R20.2 Paresthesia of skin; R07.9 Chest pain, unspecified; R31.9 Hematuria, unspecified; Z20.822 Contact with and (suspected) exposure to COVID-19; Z59.0 Homelessness
CPT/HCPCS: 36415; 70450; 70496; 70498; 70553; 71045; 80053; 80305; 81001; 82550; 83605; 83690; 84145; 84484; 85025; 85610; 85730; 86140; 87040; 87077; 87086; 87186; 87491; 87591; 87635; 93005; 96365; 96375; 99285; C9803; A9579; J1885; J2405; Q9967

== ENCOUNTER 2021-03-18 19:37 | Emergency (ER) | payer OTHER, MEDICAID, SELFPAY ==
[2021-03-18 19:50] VITALS: BP 129/82; PULSE 108; RESP 18; TEMP 36.9; O2SAT 100; BMI 23.5
--- NOTE | 2021-03-18 20:00 | PC.NURSE ---
Pt holding antiobiotics called into [facility] today by myself. Comes to desk and states in an aggressive manner I want to talk with Dr. Mccarthy. When told that Dr. Mccarthy was not on he stated that's unfortunate and walked out of ED.
--- NOTE | 2021-03-19 00:48 | ED.RECABL ---
HPI - Recheck/Abnormal Lab/Rx General Chief Complaint: Recheck/Abnormal Lab/Rx Stated Complaint: BACK PAIN NECK HEAD ALL OVER DIZZY Source: patient Mode of arrival: Wheelchair Limitations: no limitations Related Data Home Medications Medication Instructions Recorded Confirmed clonidine HCl PO BID #0 08/11/16 pantoprazole [Protonix] PO QDAY #30 tab 08/11/16 Previous Rx's Medication Instructions Recorded cyclobenzaprine 10 mg PO Q8HP PRN #20 tab 08/11/16 cyclobenzaprine 10 mg PO TID PRN #12 tab 06/21/19 Allergies Allergy/AdvReac Type Severity Reaction Status Date / Time cat dander [CAT DANDER] Allergy Unknown Verified 03/18/21 19:48 Sulfa (Sulfonamide Allergy Unknown Verified 03/18/21 19:48 Antibiotics) [SULFA (SULFONAMIDE ANTIBIOTICS)] SEASONAL Allergy Unknown Uncoded 03/18/21 19:48 Patient History Medical History (Updated 03/18/21 @ 20:03 by Jana Johnson RN) Anxiety Depression Substance abuse Social History lives independently: Yes Smoking Status: Current every day smoker Smoking Status: Current every day smoker tobacco type: cigarettes Substance Use Type: marijuana Exam Initial Vital Signs Initial Vital Signs: Vital Signs Temperature 98.4 F 03/18/21 19:50 Pulse Rate 108 H 03/18/21 19:50 Respiratory Rate 18 03/18/21 19:50 Blood Pressure 129/82 03/18/21 19:50 Pulse Oximetry 100 03/18/21 19:50 Course Vital Signs Vital signs: Vital Signs - 8 hr 03/18/21 19:50 Temperature 98.4 F Pulse Rate 108 H Respiratory Rate 18 Blood Pressure 129/82 Pulse Oximetry 100 Discharge Plan Departure Patient Disposition: Left Without Being Seen Clinical Impression: Patient left without being seen
== END 2021-03-18 20:03 | disposition left against medical advice (07) ==
PROVIDERS: Emergency Provider Emergency Medicine
CPT/HCPCS: 99281

== ENCOUNTER 2021-07-17 19:37 | Emergency (ER) | payer OTHER, MEDICAID, SELFPAY ==
[2021-07-17 19:41] VITALS: BP 145/90; PULSE 111; RESP 20; TEMP 37.2; O2SAT 97
--- NOTE | 2021-07-17 19:43 | DI.RAD.S_ITS ---
PROCEDURE: XR FINGER RT MIN 2V INDICATIONS: crush injury TECHNIQUE: AP hand, 2 views of the 2nd finger(s) acquired. COMPARISON: None. FINDINGS: Bones: Comminuted, nondisplaced tuft fracture of the 2nd distal phalanx. No dislocation. No other fractures seen. Radiodensity of uncertain etiology projecting over the 1st metacarpal. Deformity of remote, healed 5th metacarpal neck fracture. Soft tissues: No suspicious soft tissue calcifications. IMPRESSION: Nondisplaced tuft fracture of the 2nd digit. Dictated by: Elin Cummins M.D. on 07/17/2021 at 20:39 Approved by: Elin Cummins M.D. on 07/17/2021 at 20:40
[2021-07-17] MEDS: HYDROCODONE/ACET 5/325 TABLET 1 TAB PO (20:52)
--- NOTE | 2021-07-17 21:32 | ED_ITS ---
HPI - Extremity Injury (Upper) General Chief Complaint: Extremity Injury, Upper Stated Complaint: SMASHED RT HAND INDEX FINGER ON CAR DOOR Time Seen by Provider: 07/17/21 20:49 Source: patient Mode of arrival: Ambulatory Limitations: no limitations History of Present Illness HPI narrative: This is a 36-year-old male comes emergency department after smashing his index finger of his right hand in the door of a [place] patient states if he had quite flattened earlier. It is quite painful at the tip he denies any loss of sensation. He has range of motion otherwise. Patient denies any other injuries. He denies any other concerns today. Patient has allergies to sulfa. Related Data Home Medications Medication Instructions Recorded Confirmed clonidine HCl 0.1 mg tablet PO BID #0 08/11/16 pantoprazole 20 mg tablet,delayed PO QDAY #30 tab 08/11/16 release (Protonix) Previous Rx's Medication Instructions Recorded cyclobenzaprine 10 mg tablet 10 mg PO Q8HP PRN #20 tab 08/11/16 cyclobenzaprine 10 mg tablet 10 mg PO TID PRN #12 tab 06/21/19 tramadol 50 mg tablet (Ultram) 50 mg PO Q6H PRN #7 tab 07/17/21 Allergies Allergy/AdvReac Type Severity Reaction Status Date / Time cat dander [CAT DANDER] Allergy Unknown Verified 03/18/21 19:48 Sulfa (Sulfonamide Allergy Unknown Verified 03/18/21 19:48 Antibiotics) [SULFA (SULFONAMIDE ANTIBIOTICS)] SEASONAL Allergy Unknown Uncoded 03/18/21 19:48 Review of Systems Review of Systems ROS Unobtainable: All systems reviewed & are unremarkable except as noted in HPI and below Patient History Medical History (Updated 07/17/21 @ 21:43 by Adela Quiles DO) Anxiety Depression Substance abuse Social History lives independently: Yes Smoking Status: Current every day smoker Smoking Status: Current every day smoker tobacco type: cigarettes Substance Use Type: marijuana Exam Narrative Exam Narrative: GENERAL: Alert and oriented x three, male in mild distress. HEENT: Head normocephalic, atraumatic, EOMI, pupils reactive, face symmetric, moist mucous membranes NECK: Supple, full range of motion EXTREMITIES: Normal range of motion, no clubbing. Positive for mild edema as well as ecchymosis of the distal tuft the right 2nd finger. Patient has a small subungual hematoma at the most proximal portion of the nail. Nail is intact and is not raised. Patient has cap refill less than 2 seconds. Full range of motion with other numbness or loss of sensation. Intact skin. No lacerations. NEUROLOGICAL: Cranial nerves II through XII grossly intact. Moving all extremities SKIN: Warm, dry, no petechiae, no rashes or lesions. Initial Vital Signs Initial Vital Signs: Vital Signs Temperature 98.9 F 07/17/21 19:41 Pulse Rate 111 H 07/17/21 19:41 Respiratory Rate 20 07/17/21 19:41 Blood Pressure 145/90 H 07/17/21 19:41 Pulse Oximetry 97 07/17/21 19:41 Procedures Nail Trephination Time of procedure: 21:47 Time out: Yes Location (finger): right and index Sterile prep: chlorhexidine Method of drainage: nail cautery Procedure successful: Yes Patient tolerated procedure: well Course Orders Ordered: ED Orders 07/17/21 19:43 XR finger RT min 2V Stat Discontinued Medications Hydrocodone Bitart/Acetaminophen (Hydrocodone/Acet 5/325 Tablet) 1 tab PO NOW ONE Stop: 07/17/21 20:50 Last Admin: 07/17/21 20:52 Dose: 1 tab Documented by: PERI Vital Signs Vital signs: Vital Signs - 8 hr 07/17/21 19:41 07/17/21 21:45 Temperature 98.9 F Pulse Rate 111 H 104 H Respiratory Rate 20 16 Blood Pressure 145/90 H 143/98 H Pulse Oximetry 97 99 MDM - Extremity Injury (Upper) Imaging Data Extremity x-ray #1: Radiologist's Impression: [address] [address] XRay Report Signed Patient: Juanita Kinney MR#: [id number] : 1985 Acct:[id number] Age/Sex: 36 / M Date of Service: 07/17/21 Loc: ED Accession Number: [id number] ?? Procedure: XR finger RT min 2V Ordering Provider: Adela Quiles D.O. PROCEDURE:? XR FINGER RT MIN 2V ? INDICATIONS:? crush injury ? TECHNIQUE:? AP hand, 2 views of the 2nd finger(s) acquired.? ? COMPARISON:? None. ? FINDINGS:? ? Bones:? Comminuted, nondisplaced tuft fracture of the 2nd distal phalanx.? No dislocation.? No other fractures seen.? Radiodensity of uncertain etiology projecting over the 1st metacarpal.? Deformity of remote, healed 5th metacarpal neck fracture. ? Soft tissues:? No suspicious soft tissue calcifications.? ? IMPRESSION:? Nondisplaced tuft fracture of the 2nd digit. ? ? Dictated by: Elin Cummins M.D. on 07/17/2021 at 20:39 ? ? Approved by: Elin Cummins M.D. on 07/17/2021 at 20:40?? MDM Narrative Medical decision making narrative: Patient has a tuft fracture of the distal phalanx of the right hand. Has a small subungual hematoma. Cautery was performed a small amount of blood drained. Patient states he will epi tape his fingers home. Patient left the department prior to receiving his discharge paperwork his mother who was still present collected. Discharge Plan Departure Patient Disposition: Home Clinical Impression: Subungual hematoma of digit of hand, Closed fracture of tuft of distal phalanx of finger Instructions: DI for Finger Fracture, DI for Subungual Hematoma Activity Restrictions/Additional Instructions: Follow-up if you are not having improvement in your symptoms over the next 1-2 weeks. Take pain medication as prescribed. Prescription sent to [facility] in [place] Keep the opening over your hematomaclean and dry. Wash daily with soap and water only. Do not use over the counter products (alcohol or peroxide)on the wounds unless instructed by a physician. If wound condition worsens (increased/expanding redness, developing fluid blisters, or worsening pain), either contact your doctor for an urgent re-asse ssment , or return to the Emergency Department. Return to the Emergency Department for any new or worsening symptoms. Return if fever greater than 100.4 Fahrenheit, increased swelling, increasing p ain or worsening symptoms such as increased discharge or spreading redness. Use warm compresses 3 times daily for 20 minutes to the affected area. Area clean and dry. Elevated affected body part to decrease swelling. OK to use ice pack on the affected body part. Use for 15-20 minutes each time, for 5-6x per day. If you develop worsening pain, numbness, tingling, discoloration of the affected body part, either see your doctor for an urgent re-assessment, or return to the Emergency Department. Return to the Emergency Department for any new or worsening symptoms. Prescriptions: New tramadol [Ultram] 50 mg tablet 50 mg PO Q6H PRN (Reason: pain) Qty: 7 RF: 0 No Action clonidine HCl 0.1 mg tablet PO BID Qty: 0 RF: 0 pantoprazole [Protonix] 20 mg tablet,delayed release (DR/EC) PO QDAY Qty: 30 RF: 0 cyclobenzaprine 10 MG tablet 10 mg PO Q8HP PRNQty: 20 RF: 0 cyclobenzaprine 10 mg tablet 10 mg PO TID PRN (Reason: muscle spasm) Qty: 12 RF: 0
[2021-07-17 21:45] VITALS: BP 143/98; PULSE 104; RESP 16; O2SAT 99
== END 2021-07-17 21:52 | disposition home or self-care (01) ==
PROVIDERS: Emergency Provider Emergency Medicine
DX: S62.600A Fracture of unspecified phalanx of right index finger, initial encounter for closed fracture (principal); S60.121A Contusion of right index finger with damage to nail, initial encounter; W23.0XXA Caught, crushed, jammed, or pinched between moving objects, initial encounter
CPT/HCPCS: 73140; 99283

== ENCOUNTER 2025-08-27 17:56 | Inpatient (IN) | payer OTHER, SELFPAY ==
[2025-08-27 18:20] VITALS: BP 139/97; PULSE 96; RESP 22; TEMP 37.3; O2SAT 95; BMI 38.0
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
[2025-08-27] MEDS: HALOPERIDOL 5 MG/ML VIAL IM (18:54)
--- NOTE | 2025-08-27 19:21 | PC.NURSE ---
Addendum entered by Stacey Germain CNA 08/27/25 20:20: after patient had time to settle in the department the patient was willing to allow for a nasal covid swab @2017. 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
--- NOTE | 2025-08-27 19:30 | PC.NURSE ---
Assumed care of patient at this time. Pt is too drowsy after med administration to answer assessment questions. Will make another attempt once patient is more alert. MD aware.
[2025-08-27 19:46] LABS: Ur Creatinine Normal (Normal); Ur Specific Gravity Normal (Normal); Urine THC Positive (Negative); Urine pH Normal (Normal)
--- NOTE | 2025-08-27 19:46 | CM.SWNOTE ---
ED SEROLOGY TEACHER Assessment SEROLOGY TEACHER - Backup Administrator Assessment SEROLOGY TEACHER/Backup Administrator Assessment Time Spent with Patient Start date 08/27/25 Visit Start Time 18:25 End date 08/27/25 Visit End Time 18:40 Total time Care 25 minutes Management spent on patient visit-in minutes Mental Health Screening Include Onset, Duration, Intensity Presenting Problem Patient presents to ED via parent's private vehicle due to concern for patient's increasing paranoia, internal stimulus and delusions. Patient's parents state that patient has been decompensating that last couple of days and they have been concerned for him. Patient presents as gravely disabled, with pressured speech, elevated affect, expressive movement unable to sit still and flight of ideas. Patient was provided 5mg of Haldol and 1mg of Ativan IMM for medication intervention to ensure the safety of patient and staff. Patient presents as suspicious of being at the hospital. Precipitating Event( It is reported by parents that patient called LE due to s) concerns patient had of being surveylanced. It is reported that LE recommended that patient go to the ED to seek evaluation due to concern for patient's mental health. It is reported by parents that patient has been drinking and not taking his medication. It is reported that patient has hx of similar episodes around this time of year and patient is generally stable when his on medication. Parents are not aware of patient's current medication list, it is reported that patient had a voluntary stay at [facility] within 6 months ago. Patient Strengths Patient has good support from his parents. Current Behavioral Patient states he saw a therapist previously but he Health Provider(s) stopped seeing therapist because he believed her office Include Facility, was bugged and he felt unsafe returning there. Provider, Ph. # Psych. Hx Mental Patient has hx of paranoia, hallucinations, SI, Health and Chemical Depression and Anxiety, suspected hx of Schizophrenia ( Dependency no formal dx reported) Patient has hx of Methamphetamine use, patient denies any current substance use other than nicotine. Patient' s parents report that they have found empty alcohol bottles in his room. Family Hx of non reported Behavioral Abuse Psychiatric Parents report that patient was at [facility] ( voluntarily in recent months date(s)/location) Psychosocial Patient is 40 y/o male who resides with parents in [facility], patient has parents as supports. Support Systems School/Work Self Employed Legal Concerns Legal Matters - None reported Outstanding Issues Mental Status Orientation (Person/ A/O to person, place and self Place/Time) Stated Mood feeling unsafe Affect (Congruent elevated, labile, anxious with Mood?) Thought Content - Patient presents with grandiose ideas, paranoia, Specify/Describe patient presents responding to internal stimulus and Obsessions, experiencing delusions. Patient endorses that someone Delusions, is out to get him, he believes he is being surveylanced Hallucinations . Patient states that there is a computer generated video scanned in of him and he has blended two universes and split them in half. In triage patient reports that he made a deal with devil, cancelled it and the concerns that he will be at the end of the day. Patient presents with concern that he is being fed stimulants through his skin or mouth. Patient endorses he believes that there are thousands of people out to get him. Thought Processes ( detailed, disorganized, tansgential Logical-Coherent- Goal Directed- Detailed-Tangential- Circumstantial- Logical-Disorganized -Thought Blocking) Speech (Normal-Slow- pressured, slurred, labile [id number]- Loud-Pressured) Motor (Normal- excessive, patient is unable to sit still. [id number] ) Insight (Good-Fair- poor/limited Poor/Limited) Judgement (Good-Fair poor/limited -Poor/Limited) Impulse Control ( impaired Adequate-Impaired) Memory (Immediate- limited, not formally assessed Recent-Remote, Impaired-Intact) Concentration ( impaired Intact-Impaired) Attention (Intact- impaired Impaired) Behavior ( appropriate, patient has been appropriate with staff Appropriate- Inappropriate) Additional Comment Patient presents as compliant and calm with staff. Risk Assessment Suicidal Ideation ( No Plan) Homicidal Ideation ( No Plan) Comment Patient denies SI and HI. Patient denies access to firearms. Patient endorsees concern that others are out to kill him. Intervention Intervention SEROLOGY TEACHER enters triage room to meet with patient, present in triage is patient, escrow assistant and DIETETIC INTERN. Patient endorses concerns that others are out to get him and concern for his safety. Patient presents with paranoia, grandiose ideas and presenting with internal stimulus. Patient presents as sweating, unable to sit still, pressured speech and poor eye contact. SEROLOGY TEACHER meets with patient's parents privately who report concerns for patient over the last few days, noticing that patient has not been taking his medication and suspected ETOH use. Parents are in support of patient seeking BH treatment and willing to speak with DCR on the phone. It is the opinion of this SEROLOGY TEACHER that patient would benefit from BH inpatient hospitalization upon medical clearance for safety, crisis stabilization and medication management. Patient is not voluntary for BH treatment at this time, this SEROLOGY TEACHER recommends DCR dispatch upon medical clearance for evaluation to determine [facility] placement. SEROLOGY TEACHER reviews this with ED provider Dr. Quiles who indicates agreement and understanding. Plan RA Plan ED team to dispatch DCR upon medical clearance. CHRIS CoradoSW
[2025-08-27 19:48] LABS: Urine MDMA Negative (Negative); Urine Methamphetamines Positive (Negative); Urine Tricyclic Antidepressant Negative (Negative)
[2025-08-27 19:48] LABS: Add Manual Diff / Slide Review NO; Hematocrit 44.4 % (41-53); Hemoglobin 15.5 g/dL (13.5-17.5); Lymphocytes Absolute Auto 3000 /uL (1100-4500); Mean Corpuscular HGB Conc 35.0 % (30-36); Mean Corpuscular Hemoglobin 30.3 PG (26-34); Mean Corpuscular Volume 86.7 fL (80-100); Platelet Count 273 X10^3/uL (150-400)
[2025-08-27 19:59] LABS: Acetaminophen < 10 ug/mL (10-30); Alanine Aminotransferase 164 IU/L (<50); Albumin 5.2 g/dL (3.5-5.0); Albumin Globulin Ratio 1.4 (1.0-2.8); Alkaline Phosphatase 84 U/L (38-126); Blood Urea Nitrogen 66 mg/dL (9-20); Calcium 9.0 mg/dL (8.4-10.2); Carbon Dioxide 22 mmol/L (22-32); Chloride 88 mmol/L (98-107); Estimated Glomerular Filt Rate 18 mL/min (>60); Ethanol (ETOH) < 10 mg/dL (<10); Globulin 3.8 g/dL (1.7-4.1); Glucose 103 mg/dL (70-99); HEMOLYSIS < 15 (0-50); Potassium 4.0 mmol/L (3.4-5.1); Salicylate 2.9 mg/dL (<20); Sodium 127 mmol/L (137-145); Total Protein 9.0 g/dL (6.3-8.2)
[2025-08-27] MEDS: NICOTINE 21 MG PATCH TOP (20:12)
[2025-08-27 20:35] VITALS: PULSE 73; RESP 32; O2SAT 96
[2025-08-27 20:38] LABS: TSH w/ Reflex to FT4 2.36 uIU/mL (0.47-4.68)
--- NOTE | 2025-08-27 20:50 | DI.CT.S_ITS ---
PROCEDURE: CT KIDNEY URETER BLADDER (KUB) INDICATIONS: acute kidney injury TECHNIQUE: Axial sections were acquired from the lung bases to the pubic symphysis. Coronal and sagittal reformats were performed. For radiation dose reduction, the following was used: automated exposure control, adjustment of mA and/or kV according to patient size. COMPARISON: None. FINDINGS: Image quality: Diagnostic. Lower Chest: No significant findings. URINARY: Right Kidney: No stones or hydronephrosis. Right Ureter: No hydroureter. Left Kidney: No obstructing stones. Minimal hydronephrosis. Left Ureter: Stone measuring up to 4 mm in the proximal ureter with mild upstream hydroureter Bladder: Normal wall thickness. No stones. ABDOMEN: Liver: No contour-deforming solid mass. Gallbladder: No radiopaque gallstones or wall thickening. Biliary ducts: No biliary dilation. Pancreas: No ductal dilation. Spleen: Size is within normal limits. Adrenal Glands: No adrenal nodules. Stomach and Bowel: Normal colonic caliber, without significant wall thickening. Normal appendix. Peritoneum: No abnormal intraperitoneal fluid. No free air. Ventral Wall: No hernia. Abdominal Nodes: No enlarged retroperitoneal or mesenteric lymph nodes. Vessels: Aorta and inferior vena cava are normal in size. PELVIS: Pelvic Organs: Unremarkable. Pelvic Nodes: Unremarkable. Miscellaneous: No inguinal hernias are seen. Bones: Unremarkable. IMPRESSION: Stone within the left proximal ureter measuring 4 mm with mild upstream hydroureter and minimal hydronephrosis. Dictated by: Rcihard Dorman M.D. on 08/27/2025 at 21:17 Approved by: Richard Dorman M.D. on 08/27/2025 at 21:20
[2025-08-27 21:04] LABS: Appearance Urine UA CLEAR
--- NOTE | 2025-08-27 21:12 | PC.NURSE ---
accompanied patient to CT and back, patient was sleeping during transport and procedure. Patient is now sleeping in bed.
[2025-08-27] MEDS: SODIUM CHLORIDE 0.9% 1,000 ML 1000 ML IV ×2 (21:20→23:30)
[2025-08-27 21:25] LABS: Color Urine UA ORANGE
[2025-08-27 21:31] LABS: COVID19 -Nasal RAPID Negative (Negative)
[2025-08-27 21:32] LABS: Ictotest Urine Negative (Negative)
[2025-08-27 21:33] LABS: Culture Indicated Urine Cult Not Indicated
[2025-08-27 21:53] LABS: Lipase 71 U/L (23-300)
[2025-08-27 22:29] LABS: Creatine Kinase 37100 U/L (55-170)
[2025-08-27 22:59] VITALS: PULSE 69; RESP 25; O2SAT 94
[2025-08-27 23:00] VITALS: BP 140/83; PULSE 69; RESP 36
[2025-08-27 23:30] VITALS: BP 117/69; PULSE 68; RESP 23; O2SAT 96
--- NOTE | 2025-08-27 23:31 | PC.NURSE ---
Pt remains deep asleep w/even and unlabored respirations. Unable to answer questions or follow commands at this time. Still unable to perform assessments. Will make another attempt.
--- NOTE | 2025-08-27 23:35 | PC.NURSE ---
Pt remains drowsy. When asked questions pt opens his eyes and mumbles sounds. Per test lab technician, pt slept through CT scan. MD aware assessments remain incomplete.
--- NOTE | 2025-08-27 23:49 | P.HP_ITS ---
History of Present Illness History of Present Illness Chief complaint: mental health-reluctant appearance Narrative: 40M with PMH of hallucinations presented with desire for treatment for auditory hallucinations without suicidal or homicidal ideation. On initial evaluation, his leucocyte was found to be elevated to 13.8, sodium 127, creatinine 4.08, AST 500, bilirubin 2.3, and urinalysis positive for bacteria. COVID was negative. UDS was positive for amphetamines and THC. A CT KUB showed a 4 mm L proximal ureter stone with mild hydroureter and minimal hydronephrosis. Urology was consulted but recommended medical treatment. He received one dose of Levaquin in the ED. For the hallucinations, he received Haldol and Ativan. His CK was found to be 37K for which 2 fluid boluses were given. He has no physical symptoms of any kind, including pain and dysuria. On my exam, he c/o of very recent abdominal discomfort, vague low back pain, nausea. [facility] Medical History Substance abuse Anxiety Depression Social History lives independently: Yes Meds Home Medications and Allergies Home Medications ?Medication ?Instructions ?Recorded ?Confirmed ?Type clonidine HCl 0.1 mg tablet PO BID ##0 08/11/16 Histo ry cyclobenzaprine 10 mg tablet 10 mg PO Q8HP PRN #20 tab s 08/11/16 Rx pantoprazole 20 mg tablet,delayed PO QDAY #30 tabs History release (Protonix) cyclobenzaprine 10 mg tablet 10 mg PO TID PRN muscle s pasm #12 06/21/19 Rx tabs tramadol 50 mg tablet (Ultram) 50 mg PO Q6H PRN pain # 7 tabs 07/17/21 Rx Allergies Allergy/AdvReac Type Severity Reaction Status Date / Time cat dander (CAT DANDER) Allergy Unknown Verified 03/18/21 19:48 SEASONAL Allergy Unknown Uncoded 03/18/21 19:48 Review of Systems Review of Systems Narrative: As per HPI. Rest of 10-system review negative. Exam Vital Signs (past 8 hours): - 08/27/25 18:20 08/27/25 20:35 08/27/25 22:59 Temperature 99.1 F Pulse Rate 96 H 73 69 Respiratory Rate 22 32 H 25 H Blood Pressure 139/97 H Pulse Oximetry 95 96 94 Oxygen Delivery Method Room Air Room Air 08/27/25 23:00 08/27/25 23:00 Temperature Pulse Rate 69 Respiratory Rate 36 H Blood Pressure 140/83 Pulse Oximetry Oxygen Delivery Method Oxygen Delivery Method Room Air Narrative Exam Narrative: Patient was evaluated entirely through 2-way audio/video telemedicine with RN assistance in exam. Physician was not present at beside in person at any time for this evaluation. Consent for telemedicine obtained from patient. Const Other: somnolent, arousable but requiring frequent repeated attempts at waking, no acute distress HENMT Other: normocephalic, atraumatic Eyes Other: anicteric Neck Other: FROM Resp Other: CTA-B Cardio Other: RRR GI Other: S/+BS. Mildly T w/o G/R LUQ, RLQ. Back/Spine/Pelvis Other: no CVA tenderness Skin Other: no rashes Neuro Other: normal speech, normal movements in bed Extrem Other: no edema Psych Other: some hallucinations during exam but calm, appropriate, redirectable. Objective Imaging CT scan - abdomen: Radiologist's impression: Stone within the left proximal ureter measuring 4 mm with mild upstream hydroureter and minimal hydronephrosis. Labs 08/27/25 19:37 08/27/25 19:37 Labs: Laboratory Results - last 24 hr 08/27/25 08/27/25 08/27/25 19:32 19:32 19:32 WBC RBC Hgb Hct MCV MCH MCHC RDW Plt Count Neut % (Auto) Lymph % (Auto) Mcleod % (Auto) Eos % (Auto) Baso % (Auto) Neut # (Auto) Lymph # (Auto) Mcleod # (Auto) Eos # (Auto) Baso # (Auto) Sodium Potassium Chloride Carbon Dioxide BUN Creatinine Estimated GFR BUN/Creatinine Ratio Glucose Calcium Total Bilirubin AST ALT Alkaline Phosphatase Total Creatine Kinase Total Protein Albumin Globulin Albumin/Globulin Ratio Lipase TSH Urine Color [place] Urine Appearance Clear Urine pH TNP Ur Specific [place] TNP Urine Protein TNP Urine Glucose (UA) TNP Urine Ketones TNP Urine Occult Blood TNP Urine Nitrate TNP Urine Bilirubin TNP Ur Bilirubin Confirm Negative Urine Urobilinogen TNP Ur Leukocyte Esterase TNP Urine RBC Cancelled 0-1/hpf Urine WBC Cancelled 1-5/hpf Ur Squamous Epith Cells Cancelled Ur Transition Epith Cell Ur Renal Epithelial Cell Calcium Oxalate Crystal Uric Acid Crystals Triple Phos Crystals Other Crystals Amorphous Sediment Urine Bacteria Hyaline Casts Granular Casts RBC Casts WBC Casts Other Casts Urine Mucus Urine Trichomonas Urine Yeast Urine Sperm Ur Culture Indicated? Micro UA Comment Vol Urine Centrifuged Salicylates U Opiates 300ng/mL cut Ur Oxycodone Screen Urine Methadone Screen Acetaminophen Ur Barbiturates Screen U Tricyclic Antidepress Ur Phencyclidine Scrn Ur Amphetamines Screen U Methamphetamines Scrn Ur MDMA Scrn (Ecstasy) U Benzodiazepines Scrn Urine Cocaine Screen U Marijuana (THC) Screen Urine Specific [place] Ethyl Alcohol Ur Creatinine SARS-CoV-2 (PCR) 08/27/25 08/27/25 08/27/25 19:32 19:32 19:32 WBC RBC Hgb Hct MCV MCH MCHC RDW Plt Count Neut % (Auto) Lymph % (Auto) Mcleod % (Auto) Eos % (Auto) Baso % (Auto) Neut # (Auto) Lymph # (Auto) Mcleod # (Auto) Eos # (Auto) Baso # (Auto) Sodium Potassium Chloride Carbon Dioxide BUN Creatinine Estimated GFR BUN/Creatinine Ratio Glucose Calcium Total Bilirubin AST ALT Alkaline Phosphatase Total Creatine Kinase Total Protein Albumin Globulin Albumin/Globulin Ratio Lipase TSH Urine Color Urine Appearance Urine pH Ur Specific [place] Urine Protein Urine Glucose (UA) Urine Ketones Urine Occult Blood Urine Nitrate Urine Bilirubin Ur Bilirubin Confirm Urine Urobilinogen Ur Leukocyte Esterase Urine RBC Urine WBC Ur Squamous Epith Cells 5-10 /hpf H Ur Transition Epith Cell Cancelled Ur Renal Epithelial Cell Cancelled Calcium Oxalate Crystal Cancelled Uric Acid Crystals Cancelled Triple Phos Crystals Cancelled Other Crystals Cancelled Amorphous Sediment Cancelled 2+ Urine Bacteria Cancelled Moderate (10-30) H Hyaline Casts Cancelled Granular Casts Cancelled RBC Casts Cancelled WBC Casts Cancelled Other Casts Cancelled Urine Mucus Cancelled Urine Trichomonas Urine Yeast Urine Sperm Ur Culture Indicated? Micro UA Comment Vol Urine Centrifuged Salicylates U Opiates 300ng/mL cut Ur Oxycodone Screen Urine Methadone Screen Acetaminophen Ur Barbiturates Screen U Tricyclic Antidepress Ur Phencyclidine Scrn Ur Amphetamines Screen U Methamphetamines Scrn Ur MDMA Scrn (Ecstasy) U Benzodiazepines Scrn Urine Cocaine Screen U Marijuana (THC) Screen Urine Specific [place] Ethyl Alcohol Ur Creatinine SARS-CoV-2 (PCR) 08/27/25 08/27/25 08/27/25 19:32 19:32 19:32 WBC RBC Hgb Hct MCV MCH MCHC RDW Plt Count Neut % (Auto) Lymph % (Auto) Mcleod % (Auto) Eos % (Auto) Baso % (Auto) Neut # (Auto) Lymph # (Auto) Mcleod # (Auto) Eos # (Auto) Baso # (Auto) Sodium Potassium Chloride Carbon Dioxide BUN Creatinine Estimated GFR BUN/Creatinine Ratio Glucose Calcium Total Bilirubin AST ALT Alkaline Phosphatase Total Creatine Kinase Total Protein Albumin Globulin Albumin/Globulin Ratio Lipase TSH Urine Color Urine Appearance Urine pH Normal Ur Specific [place] Urine Protein Urine Glucose (UA) Urine Ketones Urine Occult Blood Urine Nitrate Urine Bilirubin Ur Bilirubin Confirm Urine Urobilinogen Ur Leukocyte Esterase Urine RBC Urine WBC Ur Squamous Epith Cells Ur Transition Epith Cell Ur Renal Epithelial Cell Calcium Oxalate Crystal Uric Acid Crystals Triple Phos Crystals Other Crystals Amorphous Sediment Urine Bacteria Hyaline Casts Granular Casts RBC Casts WBC Casts Other Casts Urine Mucus 1+ H Urine Trichomonas Cancelled Urine Yeast Cancelled Urine Sperm Cancelled Ur Culture Indicated? Cancelled Cult not indicated Micro UA Comment Cancelled Vol Urine Centrifuged Cancelled 10ml (spun) Salicylates U Opiates 300ng/mL cut Negative Ur Oxycodone Screen Negative Urine Methadone Screen Negative Acetaminophen Ur Barbiturates Screen Negative U Tricyclic Antidepress Negative Ur Phencyclidine Scrn Negative Ur Amphetamines Screen Positive H U Methamphetamines Scrn Positive H Ur MDMA Scrn (Ecstasy) Negative U Benzodiazepines Scrn Negative Urine Cocaine Screen Negative U Marijuana (THC) Screen Positive H Urine Specific [place] Normal Ethyl Alcohol Ur Creatinine Normal SARS-CoV-2 (PCR) 08/27/25 08/27/25 19:37 20:17 WBC 13.8 H RBC 5.12 Hgb 15.5 Hct 44.4 MCV 86.7 MCH 30.3 MCHC 35.0 RDW 13.4 Plt Count 273 Neut % (Auto) 61.8 Lymph % (Auto) 21.6 L Mcleod % (Auto) 15.0 H Eos % (Auto) 1.0 L Baso % (Auto) 0.6 Neut # (Auto) 8500 H Lymph # (Auto) 3000 Mcleod # (Auto) 2100 H Eos # (Auto) 100 Baso # (Auto) 100 Sodium 127 L Potassium 4.0 Chloride 88 L Carbon Dioxide 22 BUN 66 H Creatinine 4.08 H Estimated GFR 18 L BUN/Creatinine Ratio 16.2 Glucose 103 H Calcium 9.0 Total Bilirubin 2.3 H AST 500 H ALT 164 H Alkaline Phosphatase 84 Total Creatine Kinase 55257 H Total Protein 9.0 H Albumin 5.2 H Globulin 3.8 Albumin/Globulin Ratio 1.4 Lipase 71 TSH 2.36 Urine Color Urine Appearance Urine pH Ur Specific [place] Urine Protein Urine Glucose (UA) Urine Ketones Urine Occult Blood Urine Nitrate Urine Bilirubin Ur Bilirubin Confirm Urine Urobilinogen Ur Leukocyte Esterase Urine RBC Urine WBC Ur Squamous Epith Cells Ur Transition Epith Cell Ur Renal Epithelial Cell Calcium Oxalate Crystal Uric Acid Crystals Triple Phos Crystals Other Crystals Amorphous Sediment Urine Bacteria Hyaline Casts Granular Casts RBC Casts WBC Casts Other Casts Urine Mucus Urine Trichomonas Urine Yeast Urine Sperm Ur Culture Indicated? Micro UA Comment Vol Urine Centrifuged Salicylates 2.9 U Opiates 300ng/mL cut Ur Oxycodone Screen Urine Methadone Screen Acetaminophen < 10 Ur Barbiturates Screen U Tricyclic Antidepress Ur Phencyclidine Scrn Ur Amphetamines Screen U Methamphetamines Scrn Ur MDMA Scrn (Ecstasy) U Benzodiazepines Scrn Urine Cocaine Screen U Marijuana (THC) Screen Urine Specific [place] Ethyl Alcohol < 10 Ur Creatinine SARS-CoV-2 (PCR) Negative Assessment & Plan Assessment and plan (1) Acute renal failure due to rhabdomyolysis: Status: Acute (2) Hyponatremia: Status: Acute (3) Calculus of proximal left ureter: Status: Acute Assessment & Plan narrative: 40 M with auditory hallucinations 1. Acute rhabdomyolysis, POA 2. MEREDITH, POA, likely related to #1, 3 3. Acute L ureteral stone with hydroureter and hydronephrosis, POA 4. Hyponatremia, POA 5. Hallucinations Plan: 1. Admit observation 2. Continuous IV fluids for MEREDITH, low Na, renal stone, rhabdo 3. CMP, Mg, CK in AM 4. Received antibiotic. No symptoms. Don't continue as may exacerbate hallucinations 5. Once rhabdo and MEREDITH improved, consult psychiatry Time-Based Coding :: [TOTAL MINUTES] spent with patient and on the chart (including review of chart, obtaining history, exam, reviewing outside data, placing orders, documenting exam and treatment plan, and counseling patient) on [DATE].
[2025-08-28] VITALS (26 sets, daily range): BP systolic 92–153; BP diastolic 50–97; PULSE 61–89; RESP 16–35; TEMP 36.6–37.2; O2SAT 94–99; BMI 37.6
[2025-08-28] MEDS: SODIUM CHLORIDE 0.9% 1,000 ML 150 ML IV ×3 (04:35→22:16)
[2025-08-28 06:43] LABS: Magnesium 2.6 mg/dL (1.6-2.3)
[2025-08-28 06:44] LABS: Alanine Aminotransferase 119 IU/L (<50); Albumin 4.0 g/dL (3.5-5.0); Albumin Globulin Ratio 1.3 (1.0-2.8); Alkaline Phosphatase 64 U/L (38-126); Blood Urea Nitrogen 49 mg/dL (9-20); Calcium 7.9 mg/dL (8.4-10.2); Carbon Dioxide 21 mmol/L (22-32); Chloride 98 mmol/L (98-107); Estimated Glomerular Filt Rate 48 mL/min (>60); Globulin 3.1 g/dL (1.7-4.1); Glucose 79 mg/dL (70-99); Potassium 3.1 mmol/L (3.4-5.1); Sodium 130 mmol/L (137-145); Total Protein 7.1 g/dL (6.3-8.2)
[2025-08-28 06:58] LABS: Creatine Kinase 18625 U/L (55-170)
[2025-08-28 07:06] LABS: HEMOLYSIS 57 (0-50)
--- NOTE | 2025-08-28 08:33 | PM.CN.IH.1 ---
History of Present Illness Consult details Date Patient Seen: 08/28/25 Time Patient Seen: 07:30 Chief complaint: mental health-reluctant appearance Reason for consult: Renal failure, left ureteral stone Narrative: 40 y/o M presented to ER for evaluation of psychiatric symptomns. He was speaking with the devil and admitted to substance abuse. He also endorsed bilateral flank pain, L > R, in the setting of a history of kidney stones. His evaluation in the ER was notable for a WBC of 13.8, sCr of 4.[address] KUB that noted a 4mm left proximal ureterolith with resultant upstream mild hydroureteronephrosis, no other uroliths were appreciated. His UDS was also positive for amphetamine. Urology was consulted regarding the aforementioned acute renal failure. He received IVF throughout the night and his sCr this AM was noted to be 1.83. Meds Home Medications and Allergies Home Medications ?Medication ?Instructions ?Recorded ?Confirmed ?Type clonidine HCl 0.1 mg tablet PO BID ##0 08/11/16 History cyclobenzaprine 10 mg tablet 10 mg PO Q8HP PRN #20 tabs 08/11/16 Rx pantoprazole 20 mg tablet,delayed PO QDAY #30 tabs 08/11/16 History release (Protonix) cyclobenzaprine 10 mg tablet 10 mg PO TID PRN muscle spasm #12 06/21/19 Rx tabs tramadol 50 mg tablet (Ultram) 50 mg PO Q6H PRN pain #7 tabs 07/17/21 Rx Allergies Allergy/AdvReac Type Severity Reaction Status Date / Time cat dander (CAT DANDER) Allergy Unknown Verified 03/18/21 19:48 SEASONAL Allergy Unknown Uncoded 03/18/21 19:48 Review of Systems Review of Systems Narrative: CONSTITUTIONAL: Denies weight loss, fevers, chills. HEENT: Denies change in vision, hearing. RESP: Denies SOB, cough. CV: Denies palpations, CP. GI: Denies abdominal pain, nausea, vomiting, diarrhea. : Denies dysuria, hematuria, inability to void. MSK: Denies myalgia, joint pain. SKIN: Denies rash, pruritus. NEURO: Denies headache, syncope. PSYCH: Denies recent change in mood, anxiety, depression. Exam Vital Signs (past 8 hours): - 08/28/25 01:00 08/28/25 01:00 08/28/25 01:30 Pulse Rate 65 61 Respiratory Rate 24 23 Blood Pressure 97/55 L Pulse Oximetry 96 98 Oxygen Delivery Method 08/28/25 01:30 08/28/25 02:00 08/28/25 02:00 Pulse Rate 61 Respiratory Rate 23 Blood Pressure 100/58 L 97/52 L Pulse Oximetry 97 Oxygen Delivery Method 08/28/25 02:30 08/28/25 02:30 08/28/25 03:00 Pulse Rate 61 Respiratory Rate 24 Blood Pressure 95/50 L 127/79 Pulse Oximetry 98 Oxygen Delivery Method 08/28/25 03:00 08/28/25 03:30 08/28/25 03:30 Pulse Rate 68 69 Respiratory Rate 21 Blood Pressure 132/70 Pulse Oximetry 98 98 Oxygen Delivery Method 08/28/25 04:00 08/28/25 04:00 08/28/25 04:30 Pulse Rate 71 64 Respiratory Rate 24 Blood Pressure 128/70 Pulse Oximetry 97 97 Oxygen Delivery Method 08/28/25 04:30 08/28/25 05:00 08/28/25 05:30 Pulse Rate 79 72 Respiratory Rate 34 H 19 Blood Pressure 107/55 L Pulse Oximetry 99 98 Oxygen Delivery Method 08/28/25 05:30 08/28/25 06:00 08/28/25 06:00 Pulse Rate 73 Respiratory Rate 24 Blood Pressure 134/59 L 133/59 L Pulse Oximetry 98 Oxygen Delivery Method Room Air Oxygen Delivery Method Room Air Narrative Exam Narrative: GEN: Alert and oriented X3. No acute distress. Well-nourished. EYES: PERRLA, EOMI. HENT: Moist mucus membranes, no scleral icterus, normal neck ROM. RESP: Unlabored breathing, equal rise and fall of chest bilaterally, no cyanosis appreciated. CV: No peripheral edema, unremarkable heart rate. ABD: Soft, non-tender, non-distended, no palpable masses. EXT: No edema, clubbing or cyanosis. SKIN: No rashes or lesions. NEURO: No focal neurologic deficits, CN II-XII grossly intact. PSYCH: Cooperative, appropriate mood and affect. Objective Labs 08/27/25 19:37 08/28/25 05:59 Labs: Laboratory Results - last 24 hr 08/27/25 08/27/25 08/27/25 19:32 19:32 19:32 WBC RBC Hgb Hct MCV MCH MCHC RDW Plt Count Neut % (Auto) Lymph % (Auto) Stephenson % (Auto) Eos % (Auto) Baso % (Auto) Neut # (Auto) Lymph # (Auto) Stephenson # (Auto) Eos # (Auto) Baso # (Auto) Sodium Potassium Chloride Carbon Dioxide BUN Creatinine Estimated GFR BUN/Creatinine Ratio Glucose Calcium Magnesium Total Bilirubin AST ALT Alkaline Phosphatase Total Creatine Kinase Total Protein Albumin Globulin Albumin/Globulin Ratio Lipase TSH Urine Color [place] Urine Appearance Clear Urine pH TNP Ur Specific [place] TNP Urine Protein TNP Urine Glucose (UA) TNP Urine Ketones TNP Urine Occult Blood TNP Urine Nitrate TNP Urine Bilirubin TNP Ur Bilirubin Confirm Negative Urine Urobilinogen TNP Ur Leukocyte Esterase TNP Urine RBC Cancelled 0-1/hpf Urine WBC Cancelled 1-5/hpf Ur Squamous Epith Cells Cancelled Ur Transition Epith Cell Ur Renal Epithelial Cell Calcium Oxalate Crystal Uric Acid Crystals Triple Phos Crystals Other Crystals Amorphous Sediment Urine Bacteria Hyaline Casts Granular Casts RBC Casts WBC Casts Other Casts Urine Mucus Urine Trichomonas Urine Yeast Urine Sperm Ur Culture Indicated? Micro UA Comment Vol Urine Centrifuged Salicylates U Opiates 300ng/mL cut Ur Oxycodone Screen Urine Methadone Screen Acetaminophen Ur Barbiturates Screen U Tricyclic Antidepress Ur Phencyclidine Scrn Ur Amphetamines Screen U Methamphetamines Scrn Ur MDMA Scrn (Ecstasy) U Benzodiazepines Scrn Urine Cocaine Screen U Marijuana (THC) Screen Urine Specific [place] Ethyl Alcohol Ur Creatinine SARS-CoV-2 (PCR) 08/27/25 08/27/25 08/27/25 19:32 19:32 19:32 WBC RBC Hgb Hct MCV MCH MCHC RDW Plt Count Neut % (Auto) Lymph % (Auto) Stephenson % (Auto) Eos % (Auto) Baso % (Auto) Neut # (Auto) Lymph # (Auto) Stephenson # (Auto) Eos # (Auto) Baso # (Auto) Sodium Potassium Chloride Carbon Dioxide BUN Creatinine Estimated GFR BUN/Creatinine Ratio Glucose Calcium Magnesium Total Bilirubin AST ALT Alkaline Phosphatase Total Creatine Kinase Total Protein Albumin Globulin Albumin/Globulin Ratio Lipase TSH Urine Color Urine Appearance Urine pH Ur Specific [place] Urine Protein Urine Glucose (UA) Urine Ketones Urine Occult Blood Urine Nitrate Urine Bilirubin Ur Bilirubin Confirm Urine Urobilinogen Ur Leukocyte Esterase Urine RBC Urine WBC Ur Squamous Epith Cells 5-10 /hpf H Ur Transition Epith Cell Cancelled Ur Renal Epithelial Cell Cancelled Calcium Oxalate Crystal Cancelled Uric Acid Crystals Cancelled Triple Phos Crystals Cancelled Other Crystals Cancelled Amorphous Sediment Cancelled 2+ Urine Bacteria Cancelled Moderate (10-30) H Hyaline Casts Cancelled Granular Casts Cancelled RBC Casts Cancelled WBC Casts Cancelled Other Casts Cancelled Urine Mucus Cancelled Urine Trichomonas Urine Yeast Urine Sperm Ur Culture Indicated? Micro UA Comment Vol Urine Centrifuged Salicylates U Opiates 300ng/mL cut Ur Oxycodone Screen Urine Methadone Screen Acetaminophen Ur Barbiturates Screen U Tricyclic Antidepress Ur Phencyclidine Scrn Ur Amphetamines Screen U Methamphetamines Scrn Ur MDMA Scrn (Ecstasy) U Benzodiazepines Scrn Urine Cocaine Screen U Marijuana (THC) Screen Urine Specific [place] Ethyl Alcohol Ur Creatinine SARS-CoV-2 (PCR) 08/27/25 08/27/25 08/27/25 19:32 19:32 19:32 WBC RBC Hgb Hct MCV MCH MCHC RDW Plt Count Neut % (Auto) Lymph % (Auto) Stephenson % (Auto) Eos % (Auto) Baso % (Auto) Neut # (Auto) Lymph # (Auto) Stephenson # (Auto) Eos # (Auto) Baso # (Auto) Sodium Potassium Chloride Carbon Dioxide BUN Creatinine Estimated GFR BUN/Creatinine Ratio Glucose Calcium Magnesium Total Bilirubin AST ALT Alkaline Phosphatase Total Creatine Kinase Total Protein Albumin Globulin Albumin/Globulin Ratio Lipase TSH Urine Color Urine Appearance Urine pH Normal Ur Specific [place] Urine Protein Urine Glucose (UA) Urine Ketones Urine Occult Blood Urine Nitrate Urine Bilirubin Ur Bilirubin Confirm Urine Urobilinogen Ur Leukocyte Esterase Urine RBC Urine WBC Ur Squamous Epith Cells Ur Transition Epith Cell Ur Renal Epithelial Cell Calcium Oxalate Crystal Uric Acid Crystals Triple Phos Crystals Other Crystals Amorphous Sediment Urine Bacteria Hyaline Casts Granular Casts RBC Casts WBC Casts Other Casts Urine Mucus 1+ H Urine Trichomonas Cancelled Urine Yeast Cancelled Urine Sperm Cancelled Ur Culture Indicated? Cancelled Cult not indicated Micro UA Comment Cancelled Vol Urine Centrifuged Cancelled 10ml (spun) Salicylates U Opiates 300ng/mL cut Negative Ur Oxycodone Screen Negative Urine Methadone Screen Negative Acetaminophen Ur Barbiturates Screen Negative U Tricyclic Antidepress Negative Ur Phencyclidine Scrn Negative Ur Amphetamines Screen Positive H U Methamphetamines Scrn Positive H Ur MDMA Scrn (Ecstasy) Negative U Benzodiazepines Scrn Negative Urine Cocaine Screen Negative U Marijuana (THC) Screen Positive H Urine Specific [place] Normal Ethyl Alcohol Ur Creatinine Normal SARS-CoV-2 (PCR) 08/27/25 08/27/25 08/28/25 19:37 20:17 05:59 WBC 13.8 H RBC 5.12 Hgb 15.5 Hct 44.4 MCV 86.7 MCH 30.3 MCHC 35.0 RDW 13.4 Plt Count 273 Neut % (Auto) 61.8 Lymph % (Auto) 21.6 L Stephenson % (Auto) 15.0 H Eos % (Auto) 1.0 L Baso % (Auto) 0.6 Neut # (Auto) 8500 H Lymph # (Auto) 3000 Stephenson # (Auto) 2100 H Eos # (Auto) 100 Baso # (Auto) 100 Sodium 127 L 130 L Potassium 4.0 3.1 L Chloride 88 L 98 Carbon Dioxide 22 21 L BUN 66 H 49 H Creatinine 4.08 H 1.83 H Estimated GFR 18 L 48 L BUN/Creatinine Ratio 16.2 26.8 H Glucose 103 H 79 Calcium 9.0 7.9 L Magnesium 2.6 H Total Bilirubin 2.3 H 1.9 H AST 500 H 296 H ALT 164 H 119 H Alkaline Phosphatase 84 64 Total Creatine Kinase 12047 H 02797 H D Total Protein 9.0 H 7.1 Albumin 5.2 H 4.0 Globulin 3.8 3.1 Albumin/Globulin Ratio 1.4 1.3 Lipase 71 TSH 2.36 Urine Color Urine Appearance Urine pH Ur Specific [place] Urine Protein Urine Glucose (UA) Urine Ketones Urine Occult Blood Urine Nitrate Urine Bilirubin Ur Bilirubin Confirm Urine Urobilinogen Ur Leukocyte Esterase Urine RBC Urine WBC Ur Squamous Epith Cells Ur Transition Epith Cell Ur Renal Epithelial Cell Calcium Oxalate Crystal Uric Acid Crystals Triple Phos Crystals Other Crystals Amorphous Sediment Urine Bacteria Hyaline Casts Granular Casts RBC Casts WBC Casts Other Casts Urine Mucus Urine Trichomonas Urine Yeast Urine Sperm Ur Culture Indicated? Micro UA Comment Vol Urine Centrifuged Salicylates 2.9 U Opiates 300ng/mL cut Ur Oxycodone Screen Urine Methadone Screen Acetaminophen < 10 Ur Barbiturates Screen U Tricyclic Antidepress Ur Phencyclidine Scrn Ur Amphetamines Screen U Methamphetamines Scrn Ur MDMA Scrn (Ecstasy) U Benzodiazepines Scrn Urine Cocaine Screen U Marijuana (THC) Screen Urine Specific [place] Ethyl Alcohol < 10 Ur Creatinine SARS-CoV-2 (PCR) Negative [facility] Medical History Substance abuse Anxiety Depression Social History lives independently: Yes Assessment & Plan Assessment and plan (1) Calculus of proximal left ureter: Status: Acute Plan: 40 y/o M noted to have a 4mm left proximal ureterolith with resultant upstream mild hydroureteronephrosis in the setting of acute renal failure due to rhabdomyolysis. Discussed treatment options to include continued medical expulsion therapy (recommended given minimal pain/discomfort and small size of stone) vs cystoscopy, ureteroscopy, laser lithotripsy with ureteral stent placement. Discussed risks of the procedure to include but not limited to pain, bleeding, infection, injury to urethra/bladder/ureter, inability to access the ureter requiring discussion with Interventional Radiology regarding a possible ureteral stent placement in an antegrade fashion vs a possible nephroureteral stent and/or percutaneous nephrostomy tube, urinary tract infection, inability to remove all of the stone in one setting, need for emergent open repair of bladder and/or ureter, need for multiple ureteroscopic interventions necessary to render the patient stone free. At this time, he would prefer to continue with MET and will return to Urology clinic in [address] KUB. Should his stone still be present, he would require a left ureteroscopy, laser lithotripsy and left ureteral stent placement. (2) Acute renal failure due to rhabdomyolysis: Status: Acute Plan: Appreciate assistance of hospitalist team in management of this patient, no further Urological intervention is necessary at this point. Time-Based Coding :: [TOTAL MINUTES] spent with patient and on the chart (including review of chart, obtaining history, exam, reviewing outside data, placing orders, documenting exam and treatment plan, and counseling patient) on [DATE]. PROFEE Charge Codes Inpatient or Observation consultation: 81123
[2025-08-28] MEDS: POTASSIUM CHLORIDE 20 MEQ/15 ML UDC 40 MEQ PO ×2 (11:41→18:05)
--- NOTE | 2025-08-28 12:33 | PC.NURSE ---
report to favio at this time
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
--- NOTE | 2025-08-28 13:24 | PC.NURSE ---
Pt arrived from ED on stretcher at 1245, A&Ox3 but when asked by he is here in the hospital he says because I broke the world. VSS on RA, no c/o pain but does endorse burning with urination, CMS+ bilaterally, bowel sounds present, lungs CTA. Pt oriented to room and call light. Bed in low position, call light within reach.
--- NOTE | 2025-08-28 16:31 | PM.PN.IH.1 ---
Subjective Subjective Date Patient Seen: 08/28/25 Time Patient Seen: 08:00 Interval history: Admission: 40M with PMH of hallucinations presented with desire for treatment for auditory hallucinations without suicidal or homicidal ideation. On initial evaluation, his leucocyte was found to be elevated to 13.8, sodium 127, creatinine 4.08, AST 500, bilirubin 2.3, and urinalysis positive for bacteria. COVID was negative. UDS was positive for amphetamines and THC. A CT KUB showed a 4 mm L proximal ureter stone with mild hydroureter and minimal hydronephrosis. Urology was consulted but recommended medical treatment. He received one dose of Levaquin in the ED. For the hallucinations, he received Haldol and Ativan. His CK was found to be 37K for which 2 fluid boluses were given. He has no physical symptoms of any kind, including pain and dysuria. On my exam, he c/o of very recent abdominal discomfort, vague low back pain, nausea. Subjective: The patient reports feeling better overnight after IV hydration. He has low back pain on both sides, and states overall achiness and fatigue. He was seen by Urology and conservative management with IV fluids was discussed, with outpatient follow-up plan. Exam Vital Signs (past 8 hours): - 08/28/25 09:00 08/28/25 09:30 08/28/25 10:00 Pulse Rate 75 74 84 Respiratory Rate 22 22 24 Blood Pressure Pulse Oximetry 95 94 97 08/28/25 10:02 08/28/25 10:02 Pulse Rate 85 Respiratory Rate 25 H Blood Pressure 114/67 Pulse Oximetry 97 Oxygen Delivery Method Room Air Narrative Exam Narrative: GENERAL: This is a well-nourished, well-developed patient, in no apparent distress. EYES: Pupils equal round and reactive. Extraocular motions intact. No scleral icterus. No injection or drainage. ENT: Mucous membranes pink and moist. NECK: Trachea midline. No JVD, bruits or lymphadenopathy. Supple, nontender, no meningeal signs. CARDIOVASCULAR: Regular rate and rhythm without murmurs, gallops, or rubs. RESPIRATORY: Clear to auscultation. GASTROINTESTINAL: Abdomen soft, non-tender, nondistended. EXTREMITIES: No clubbing, cyanosis, or edema. BACK: Nontender without deformity or crepitance. Mild flank tenderness. NEUROLOGIC: Alert, oriented, speech fluent, full upper and lower motor strength, no focal deficits evident. DERMATOLOGIC: No rashes or skin lesions. Objective Imaging Abdomen pelvis CT 08/27/2025: : Radiologist's impression: Stone within the left proximal ureter measuring 4 mm with mild upstream hydroureter and minimal hydronephrosis. Labs 08/27/25 19:37 08/28/25 05:59 Labs: Laboratory Results - last 24 hr 08/27/25 08/27/25 08/27/25 19:32 19:32 19:32 WBC RBC Hgb Hct MCV MCH MCHC RDW Plt Count Neut % (Auto) Lymph % (Auto) Charlton % (Auto) Eos % (Auto) Baso % (Auto) Neut # (Auto) Lymph # (Auto) Charlton # (Auto) Eos # (Auto) Baso # (Auto) Sodium Potassium Chloride Carbon Dioxide BUN Creatinine Estimated GFR BUN/Creatinine Ratio Glucose Calcium Magnesium Total Bilirubin AST ALT Alkaline Phosphatase Total Creatine Kinase Total Protein Albumin Globulin Albumin/Globulin Ratio Lipase TSH Urine Color [place] Urine Appearance Clear Urine pH TNP Ur Specific [place] TNP Urine Protein TNP Urine Glucose (UA) TNP Urine Ketones TNP Urine Occult Blood TNP Urine Nitrate TNP Urine Bilirubin TNP Ur Bilirubin Confirm Negative Urine Urobilinogen TNP Ur Leukocyte Esterase TNP Urine RBC Cancelled 0-1/hpf Urine WBC Cancelled 1-5/hpf Ur Squamous Epith Cells Cancelled Ur Transition Epith Cell Ur Renal Epithelial Cell Calcium Oxalate Crystal Uric Acid Crystals Triple Phos Crystals Other Crystals Amorphous Sediment Urine Bacteria Hyaline Casts Granular Casts RBC Casts WBC Casts Other Casts Urine Mucus Urine Trichomonas Urine Yeast Urine Sperm Ur Culture Indicated? Micro UA Comment Vol Urine Centrifuged Salicylates U Opiates 300ng/mL cut Ur Oxycodone Screen Urine Methadone Screen Acetaminophen Ur Barbiturates Screen U Tricyclic Antidepress Ur Phencyclidine Scrn Ur Amphetamines Screen U Methamphetamines Scrn Ur MDMA Scrn (Ecstasy) U Benzodiazepines Scrn Urine Cocaine Screen U Marijuana (THC) Screen Urine Specific [place] Ethyl Alcohol Ur Creatinine SARS-CoV-2 (PCR) 08/27/25 08/27/25 08/27/25 19:32 19:32 19:32 WBC RBC Hgb Hct MCV MCH MCHC RDW Plt Count Neut % (Auto) Lymph % (Auto) Charlton % (Auto) Eos % (Auto) Baso % (Auto) Neut # (Auto) Lymph # (Auto) Charlton # (Auto) Eos # (Auto) Baso # (Auto) Sodium Potassium Chloride Carbon Dioxide BUN Creatinine Estimated GFR BUN/Creatinine Ratio Glucose Calcium Magnesium Total Bilirubin AST ALT Alkaline Phosphatase Total Creatine Kinase Total Protein Albumin Globulin Albumin/Globulin Ratio Lipase TSH Urine Color Urine Appearance Urine pH Ur Specific [place] Urine Protein Urine Glucose (UA) Urine Ketones Urine Occult Blood Urine Nitrate Urine Bilirubin Ur Bilirubin Confirm Urine Urobilinogen Ur Leukocyte Esterase Urine RBC Urine WBC Ur Squamous Epith Cells 5-10 /hpf H Ur Transition Epith Cell Cancelled Ur Renal Epithelial Cell Cancelled Calcium Oxalate Crystal Cancelled Uric Acid Crystals Cancelled Triple Phos Crystals Cancelled Other Crystals Cancelled Amorphous Sediment Cancelled 2+ Urine Bacteria Cancelled Moderate (10-30) H Hyaline Casts Cancelled Granular Casts Cancelled RBC Casts Cancelled WBC Casts Cancelled Other Casts Cancelled Urine Mucus Cancelled Urine Trichomonas Urine Yeast Urine Sperm Ur Culture Indicated? Micro UA Comment Vol Urine Centrifuged Salicylates U Opiates 300ng/mL cut Ur Oxycodone Screen Urine Methadone Screen Acetaminophen Ur Barbiturates Screen U Tricyclic Antidepress Ur Phencyclidine Scrn Ur Amphetamines Screen U Methamphetamines Scrn Ur MDMA Scrn (Ecstasy) U Benzodiazepines Scrn Urine Cocaine Screen U Marijuana (THC) Screen Urine Specific [place] Ethyl Alcohol Ur Creatinine SARS-CoV-2 (PCR) 08/27/25 08/27/25 08/27/25 19:32 19:32 19:32 WBC RBC Hgb Hct MCV MCH MCHC RDW Plt Count Neut % (Auto) Lymph % (Auto) Charlton % (Auto) Eos % (Auto) Baso % (Auto) Neut # (Auto) Lymph # (Auto) Charlton # (Auto) Eos # (Auto) Baso # (Auto) Sodium Potassium Chloride Carbon Dioxide BUN Creatinine Estimated GFR BUN/Creatinine Ratio Glucose Calcium Magnesium Total Bilirubin AST ALT Alkaline Phosphatase Total Creatine Kinase Total Protein Albumin Globulin Albumin/Globulin Ratio Lipase TSH Urine Color Urine Appearance Urine pH Normal Ur Specific [place] Urine Protein Urine Glucose (UA) Urine Ketones Urine Occult Blood Urine Nitrate Urine Bilirubin Ur Bilirubin Confirm Urine Urobilinogen Ur Leukocyte Esterase Urine RBC Urine WBC Ur Squamous Epith Cells Ur Transition Epith Cell Ur Renal Epithelial Cell Calcium Oxalate Crystal Uric Acid Crystals Triple Phos Crystals Other Crystals Amorphous Sediment Urine Bacteria Hyaline Casts Granular Casts RBC Casts WBC Casts Other Casts Urine Mucus 1+ H Urine Trichomonas Cancelled Urine Yeast Cancelled Urine Sperm Cancelled Ur Culture Indicated? Cancelled Cult not indicated Micro UA Comment Cancelled Vol Urine Centrifuged Cancelled 10ml (spun) Salicylates U Opiates 300ng/mL cut Negative Ur Oxycodone Screen Negative Urine Methadone Screen Negative Acetaminophen Ur Barbiturates Screen Negative U Tricyclic Antidepress Negative Ur Phencyclidine Scrn Negative Ur Amphetamines Screen Positive H U Methamphetamines Scrn Positive H Ur MDMA Scrn (Ecstasy) Negative U Benzodiazepines Scrn Negative Urine Cocaine Screen Negative U Marijuana (THC) Screen Positive H Urine Specific [place] Normal Ethyl Alcohol Ur Creatinine Normal SARS-CoV-2 (PCR) 08/27/25 08/27/25 08/28/25 19:37 20:17 05:59 WBC 13.8 H RBC 5.12 Hgb 15.5 Hct 44.4 MCV 86.7 MCH 30.3 MCHC 35.0 RDW 13.4 Plt Count 273 Neut % (Auto) 61.8 Lymph % (Auto) 21.6 L Charlton % (Auto) 15.0 H Eos % (Auto) 1.0 L Baso % (Auto) 0.6 Neut # (Auto) 8500 H Lymph # (Auto) 3000 [place] # (Auto) 2100 H Eos # (Auto) 100 Baso # (Auto) 100 Sodium 127 L 130 L Potassium 4.0 3.1 L Chloride 88 L 98 Carbon Dioxide 22 21 L BUN 66 H 49 H Creatinine 4.08 H 1.83 H Estimated GFR 18 L 48 L BUN/Creatinine Ratio 16.2 26.8 H Glucose 103 H 79 Calcium 9.0 7.9 L Magnesium 2.6 H Total Bilirubin 2.3 H 1.9 H AST 500 H 296 H ALT 164 H 119 H Alkaline Phosphatase 84 64 Total Creatine Kinase 99974 H 83707 H D Total Protein 9.0 H 7.1 Albumin 5.2 H 4.0 Globulin 3.8 3.1 Albumin/Globulin Ratio 1.4 1.3 Lipase 71 TSH 2.36 Urine Color Urine Appearance Urine pH Ur Specific [place] Urine Protein Urine Glucose (UA) Urine Ketones Urine Occult Blood Urine Nitrate Urine Bilirubin Ur Bilirubin Confirm Urine Urobilinogen Ur Leukocyte Esterase Urine RBC Urine WBC Ur Squamous Epith Cells Ur Transition Epith Cell Ur Renal Epithelial Cell Calcium Oxalate Crystal Uric Acid Crystals Triple Phos Crystals Other Crystals Amorphous Sediment Urine Bacteria Hyaline Casts Granular Casts RBC Casts WBC Casts Other Casts Urine Mucus Urine Trichomonas Urine Yeast Urine Sperm Ur Culture Indicated? Micro UA Comment Vol Urine Centrifuged Salicylates 2.9 U Opiates 300ng/mL cut Ur Oxycodone Screen Urine Methadone Screen Acetaminophen < 10 Ur Barbiturates Screen U Tricyclic Antidepress Ur Phencyclidine Scrn Ur Amphetamines Screen U Methamphetamines Scrn Ur MDMA Scrn (Ecstasy) U Benzodiazepines Scrn Urine Cocaine Screen U Marijuana (THC) Screen Urine Specific [place] Ethyl Alcohol < 10 Ur Creatinine SARS-CoV-2 (PCR) Negative [facility] Medical History Anxiety Depression Substance abuse Social History household members: family lives independently: Yes alcohol intake: current Assessment & Plan Assessment & Plan narrative: 40 M with auditory hallucinations 1. Acute rhabdomyolysis, POA 2. MEREDITH, POA, likely related to #1, 3 3. Acute L ureteral stone with hydroureter and hydronephrosis, POA 4. Hyponatremia, POA 5. Hallucinations Plan: 1. Admit inpatient 2. Continuous IV fluids for MEREDITH, low Na, renal stone, rhabdo 3. BMP, CBC, CK in am 4. Received antibiotic x 1 and stopped as no signs of infection 5. Once rhabdo and MEREDITH improved, consult psychiatry Quality VTE Deep Vein Thrombosis/Pulmonary Embolism Present on Admission: No PROFEE Right Of Way Manager Document charge(s): No Charge Codes Subsequent inpatient/observation care: [id number]
--- NOTE | 2025-08-28 17:44 | PC.NURSE ---
Pt refusing skin assessment.
[2025-08-28] MEDS: ACETAMINOPHEN 325 MG TABLET 650 MG PO (22:17)
[2025-08-29] VITALS (7 sets, daily range): BP systolic 123–156; BP diastolic 68–98; PULSE 78–99; RESP 16–20; TEMP 37.2–38; O2SAT 96–100
[2025-08-29] MEDS: SODIUM CHLORIDE 0.9% 1,000 ML 150 ML IV (04:11)
[2025-08-29 06:17] LABS: Add Manual Diff / Slide Review NO; Hematocrit 39.3 % (41-53); Hemoglobin 13.8 g/dL (13.5-17.5); Lymphocytes Absolute Auto 1000 /uL (1100-4500); Mean Corpuscular HGB Conc 35.2 % (30-36); Mean Corpuscular Hemoglobin 30.9 PG (26-34); Mean Corpuscular Volume 88.0 fL (80-100); Platelet Count 169 X10^3/uL (150-400)
[2025-08-29 06:48] LABS: Creatine Kinase 5284 U/L (55-170)
[2025-08-29 06:50] LABS: Blood Urea Nitrogen 17 mg/dL (9-20); Calcium 8.1 mg/dL (8.4-10.2); Carbon Dioxide 22 mmol/L (22-32); Chloride 102 mmol/L (98-107); Estimated Glomerular Filt Rate > 60 mL/min (>60); Glucose 87 mg/dL (70-99); HEMOLYSIS 66 (0-50); Potassium 4.2 mmol/L (3.4-5.1); Sodium 131 mmol/L (137-145)
[2025-08-29] MEDS: ACETAMINOPHEN 325 MG TABLET 650 MG PO (08:02)
[2025-08-29] MEDS: SODIUM CHLORIDE 0.9% FLUSH 10 ML IV ×2 (08:02→20:25)
[2025-08-29] MEDS: ONDANSETRON 4 MG ODT SL (08:50)
--- NOTE | 2025-08-29 10:21 | DI.RAD.S_ITS ---
PROCEDURE: XR CHEST 2V INDICATIONS: fever TECHNIQUE: 2 views of the chest were acquired. COMPARISON: [facility], , XR CHEST 1V, 03/17/2021, 16:02. FINDINGS: Surgical changes and devices: None. Lungs and pleura: Lungs are clear. No pleural effusions or pneumothorax. Mediastinum: Mediastinal contours are normal. Heart size is normal. Bones and chest wall: No suspicious bony abnormalities. Soft tissues appear unremarkable. IMPRESSION: Normal two view chest x-ray Approved by: Armand Olmstead M.D. on 08/29/2025 at 11:57
--- NOTE | 2025-08-29 10:58 | P.PN_ITS ---
Subjective Subjective Date Patient Seen: 08/29/25 Time Patient Seen: 07:50 Interval history: Admission: 40M with PMH of hallucinations presented with desire for treatment for auditory hallucinations without suicidal or homicidal ideation. On initial evaluation, his leucocyte was found to be elevated to 13.8, sodium 127, creatinine 4.08, AST 500, bilirubin 2.3, and urinalysis positive for bacteria. COVID was negative. UDS was positive for amphetamines and THC. A CT KUB showed a 4 mm L proximal ureter stone with mild hydroureter and minimal hydronephrosis. Urology was consulted but recommended medical treatment. He received one dose of Levaquin in the ED. For the hallucinations, he received Haldol and Ativan. His CK was found to be 37K for which 2 fluid boluses were given. He has no physical symptoms of any kind, including pain and dysuria. On my exam, he c/o of very recent abdominal discomfort, vague low back pain, nausea. Subjective: 08/28: The patient reports feeling better overnight after IV hydration. He has low back pain on both sides, and states overall achiness and fatigue. He was seen by Urology and conservative management with IV fluids was discussed, with outpatient follow-up plan. 08/29: The patient reports he continues to feel achy all over. He low-grade fever this morning. He denies headache, cough or shortness of breath. No new specific complaints. Exam Vital Signs (past 8 hours): - 08/29/25 04:00 08/29/25 08:00 08/29/25 09:02 Temperature 99.0 F 100.4 F H 100.2 F H Pulse Rate 78 99 H Respiratory Rate 16 20 Blood Pressure 156/81 H 139/98 H Pulse Oximetry 100 98 Oxygen Flow Rate 0 Oxygen Delivery Method Room Air Oxygen Flow Rate 0 Narrative Exam Narrative: GENERAL: This is a well-nourished, well-developed patient, in no apparent distress. EYES: Pupils equal round and reactive. Extraocular motions intact. No scleral icterus. No injection or drainage. ENT: Mucous membranes pink and moist. NECK: Trachea midline. No JVD, bruits or lymphadenopathy. Supple, nontender, no meningeal signs. CARDIOVASCULAR: Regular rate and rhythm without murmurs, gallops, or rubs. RESPIRATORY: Clear to auscultation. GASTROINTESTINAL: Abdomen soft, non-tender, nondistended. EXTREMITIES: No clubbing, cyanosis, or edema. BACK: Nontender without deformity or crepitance. Mild flank tenderness. NEUROLOGIC: Alert, oriented, speech fluent, full upper and lower motor strength, no focal deficits evident. DERMATOLOGIC: No rashes or skin lesions. Objective Labs 08/29/25 05:53 08/29/25 05:53 Labs: Laboratory Results - last 24 hr 08/29/25 05:53 WBC 6.5 D RBC 4.47 L Hgb 13.8 Hct 39.3 L MCV 88.0 MCH 30.9 MCHC 35.2 RDW 13.8 Plt Count 169 Neut % (Auto) 70.8 Lymph % (Auto) 14.8 L Whitman % (Auto) 13.4 Eos % (Auto) 0.6 L Baso % (Auto) 0.4 Neut # (Auto) 4600 Lymph # (Auto) 1000 L Whitman # (Auto) 900 Eos # (Auto) 0 Baso # (Auto) 0 Sodium 131 L Potassium 4.2 Chloride 102 Carbon Dioxide 22 BUN 17 Creatinine 0.86 Estimated GFR > 60 BUN/Creatinine Ratio 19.8 Glucose 87 Calcium 8.1 L Total Creatine Kinase 5284 H D [facility] Medical History Anxiety Depression Substance abuse Social History household members: family lives independently: Yes alcohol intake: current Assessment & Plan Assessment & Plan narrative: 40 M with auditory hallucinations 1. Acute rhabdomyolysis, POA, improving 2. MEREDITH, POA, likely related to #1, 3, resolved. 3. Acute L ureteral stone with hydroureter and hydronephrosis, POA 4. Hyponatremia, POA, improved. 5. Hallucinations, etiology unclear, possibly due to polysubstance abuse, consider underlying psychiatric disorder. 6. Polysubstance abuse, positive amphetamines, methamphetamines and marijuana screen on admission 7. Fever. Etiology unclear. Possibly metabolic versus infectious. Rule out aspiration, urinary infection. Plan: 1. Stop IV fluids 2. Chest x-ray, urinalysis 3. CMP, CBC, CK in am 4. Received antibiotic x 1 on admission and stopped; reassess pending results 5. Plan for substance abuse referral, mental health evaluation when medically stable. Quality VTE Deep Vein Thrombosis/Pulmonary Embolism Present on Admission: No IH PROFEE Roads Supervisor Document charge(s): No Charge Codes Subsequent inpatient/observation care: [id number]
[2025-08-29 13:25] LABS: Bilirubin Urine UA NEGATIVE (NEGATIVE); Color Urine UA YELLOW; Glucose Urine UA TRACE g/dL (Negative); Ketones Urine UA NEGATIVE (NEGATIVE); Leukocyte Esterase Urine UA 2+ (NEGATIVE); Nitrite Urine UA NEGATIVE (Negative); Occult Blood Urine UA 1+ (Negative); Protein Urine UA NEGATIVE (Negative); Specific Gravity Urine UA 1.010 (1.000-1.035); Urobilinogen Urine UA 2.0 E.U./dL (0.2); pH Urine UA 6.0 (4.5-8.0)
[2025-08-29 13:26] LABS: Appearance Urine UA Slightly Cloudy
[2025-08-29 13:33] LABS: Culture Indicated Urine Specimen Cultured
[2025-08-29] MEDS: levoFLOXacin 500 MG/100 ML PIGGYBACK 100 MG IV (16:27)
[2025-08-30] VITALS: BP 156/96; PULSE 88; RESP 17; TEMP 36.4; O2SAT 98
[2025-08-30 07:00] VITALS: BP 152/100; PULSE 73; RESP 18; TEMP 36.5; O2SAT 95
[2025-08-30 07:09] LABS: Add Manual Diff / Slide Review NO; Hematocrit 37.9 % (41-53); Hemoglobin 13.5 g/dL (13.5-17.5); Lymphocytes Absolute Auto 1300 /uL (1100-4500); Mean Corpuscular HGB Conc 35.6 % (30-36); Mean Corpuscular Hemoglobin 31.1 PG (26-34); Mean Corpuscular Volume 87.4 fL (80-100); Platelet Count 210 X10^3/uL (150-400)
[2025-08-30 07:28] LABS: Alanine Aminotransferase 76 IU/L (<50); Albumin 4.1 g/dL (3.5-5.0); Albumin Globulin Ratio 1.3 (1.0-2.8); Alkaline Phosphatase 70 U/L (38-126); Blood Urea Nitrogen 9 mg/dL (9-20); Calcium 8.6 mg/dL (8.4-10.2); Carbon Dioxide 26 mmol/L (22-32); Chloride 95 mmol/L (98-107); Estimated Glomerular Filt Rate > 60 mL/min (>60); Globulin 3.2 g/dL (1.7-4.1); Glucose 97 mg/dL (70-99); HEMOLYSIS < 15 (0-50); Potassium 3.9 mmol/L (3.4-5.1); Sodium 128 mmol/L (137-145); Total Protein 7.3 g/dL (6.3-8.2)
[2025-08-30 07:35] LABS: Creatine Kinase 2221 U/L (55-170)
[2025-08-30 08:50] VITALS: BP 124/81; PULSE 71; RESP 18; TEMP 36.5; O2SAT 95
[2025-08-30] MEDS: SODIUM CHLORIDE 0.9% FLUSH 10 ML IV (09:00)
--- NOTE | 2025-08-30 13:34 | P.DS_ITS ---
History of Present Illness History of Present Illness Date Patient Seen: 08/30/25 Time Patient Seen: 08:55 Chief complaint: mental health-reluctant appearance Narrative: 40M with PMH of hallucinations presented with desire for treatment for auditory hallucinations without suicidal or homicidal ideation. On initial evaluation, his leucocyte was found to be elevated to 13.8, sodium 127, creatinine 4.08, AST 500, bilirubin 2.3, and urinalysis positive for bacteria. COVID was negative. UDS was positive for amphetamines and THC. A CT KUB showed a 4 mm L proximal ureter stone with mild hydroureter and minimal hydronephrosis. Urology was consulted but recommended medical treatment. He received one dose of Levaquin in the ED. For the hallucinations, he received Haldol and Ativan. His CK was found to be 37K for which 2 fluid boluses were given. He has no physical symptoms of any kind, including pain and dysuria. On my exam, he c/o of very recent abdominal discomfort, vague low back pain, nausea. Discharge Providers Provider Date of admission: 08/27/25 23:46 Discharge Date: 08/30/25 Consults: 08/27/25 18:30 Consult to [facility] - Director Of Career Resources Routine Comment: Indicatoin: Mental Health Director Of Career Resources Consult needed for:: Mental illness 08/27/25 22:45 Consult to Urology Stat Comment: Consulting Provider: Darrell Zayas Reason for consultation: kidney stone, meredith, rhabdo Has provider been notified: Yes Discharge provider: Colten Pham MD Summary Hospital Course Discharge Diagnosis: 1. Acute rhabdomyolysis, POA, improving 2. MEREDITH, POA, likely related to #1, 3, resolved. 3. Acute L ureteral stone with hydroureter and hydronephrosis, POA 4. Acute cystitis due to Gram-negative bacilli, culture pending 5. Hyponatremia, POA, improved. 6. Hallucinations, etiology unclear, possibly due to polysubstance abuse, consider underlying psychiatric disorder. 7. Polysubstance abuse, positive amphetamines, methamphetamines and marijuana screen on admission Hospital Course: The patient was admitted and treated with IV hydration and close monitoring. He improved significantly with significant resolution of rhabdomyolysis on lab testing, [place] [address] to 2221 at discharge. Urology consulted regarding his kidney stone and recommended outpatient follow if his symptoms persist. He was feeling significantly better but developed fevers on the 2nd hospital day. Urine culture was consistent with infection and he was treated with broad-spectrum antibiotics. Director Of Career Resources assisted with discharge planning, including primary care provider arrangement and mental health services. The patient states he is not suicidal, and has no such intense or plans at the time of discharge, and is interested in outpatient follow-up. No other issues arose. Status at Discharge Cognitive/behavioral status at discharge: oriented Functional status at discharge: independent ambulation Overall status at discharge: patient is back to baseline Time Spent with Patient Time spent: Less than 30 minutes Exam Vital Signs (past 8 hours): - 08/30/25 07:00 08/30/25 08:50 Temperature 97.7 F 97.7 F Pulse Rate 73 71 Respiratory Rate 18 18 Blood Pressure 152/100 H 124/81 Pulse Oximetry 95 95 Oxygen Delivery Method Room Air Oxygen Flow Rate 0 Narrative Exam Narrative: GENERAL: This is a well-nourished, well-developed patient, in no apparent distress. EYES: Pupils equal round and reactive. Extraocular motions intact. No scleral icterus. No injection or drainage. ENT: Mucous membranes pink and moist. NECK: Trachea midline. No JVD, bruits or lymphadenopathy. Supple, nontender, no meningeal signs. CARDIOVASCULAR: Regular rate and rhythm without murmurs, gallops, or rubs. RESPIRATORY: Clear to auscultation. GASTROINTESTINAL: Abdomen soft, non-tender, nondistended. EXTREMITIES: No clubbing, cyanosis, or edema. BACK: Nontender without deformity or crepitance. Mild flank tenderness. NEUROLOGIC: Alert, oriented, speech fluent, full upper and lower motor strength, no focal deficits evident. DERMATOLOGIC: No rashes or skin lesions. Objective Imaging *: Radiologist's impression: 1. Abdomen pelvis CT 08/27/2025: Stone within the left proximal ureter measuring 4 mm with mild upstream hydroureter and minimal hydronephrosis. 2. Chest x-ray 08/29/2025: Normal two view chest x-ray Labs 08/30/25 07:01 08/30/25 07:01 Labs: Laboratory Results - last 24 hr 08/30/25 07:01 WBC 7.6 RBC 4.34 L Hgb 13.5 Hct 37.9 L MCV 87.4 MCH 31.1 MCHC 35.6 RDW 13.8 Plt Count 210 Neut % (Auto) 69.5 Lymph % (Auto) 17.8 L Sharp % (Auto) 12.0 Eos % (Auto) 0.2 L Baso % (Auto) 0.5 Neut # (Auto) 5300 Lymph # (Auto) 1300 Sharp # (Auto) 900 Eos # (Auto) 0 Baso # (Auto) 0 Sodium 128 L Potassium 3.9 Chloride 95 L Carbon Dioxide 26 BUN 9 Creatinine 1.00 Estimated GFR > 60 BUN/Creatinine Ratio 9.0 Glucose 97 Calcium 8.6 Total Bilirubin 0.6 AST 84 H ALT 76 H Alkaline Phosphatase 70 Total Creatine Kinase 2221 H D Total Protein 7.3 Albumin 4.1 Globulin 3.2 Albumin/Globulin Ratio 1.3 PFSH Medical History Anxiety Depression Substance abuse Social History household members: family lives independently: Yes alcohol intake: current Discharge Plan Discharge Plan Patient Disposition: Home Provider Discharge Comment: Followup with PCP 1 week, and mental health services Discharge orders & Medications Prescriptions: New cephalexin 500 mg capsule 500 mg PO BID Qty: 12 0RF Continued clonidine HCl 0.1 mg tablet PO BID Qty: 0 pantoprazole [Protonix] 20 mg tablet,delayed release (DR/EC) PO QDAY Qty: 30 cyclobenzaprine 10 MG tablet 10 mg PO Q8HP PRNQty: 20 0RF cyclobenzaprine 10 mg tablet 10 mg PO TID PRN (Reason: muscle spasm) Qty: 12 0RF Diet/Activity/Treatments Diet: Regular Skin/Wound/Dressing Care Report to your healthcare provider any signs of infection, such as:: chills, fever, night sweats and increased pain Visit Report/Discharge Packet Stand Alone Forms: Patient Portal/API, Stroke Signs & Symptoms Quality VTE Deep Vein Thrombosis/Pulmonary Embolism Present on Admission: No MIPS - Admit I confirm the patient?s Advance Care Plan is present, Code status is documented, Surrogate decision maker is in patient?s record [If Yes, STOP here]: Yes MIPS - Meds 'Current medications' to include all prescriptions, [id number] products, herbals, cannabis/cannabidiol products, and vitamin/mineral/dietary (nutritional) supplements. I have utilized all available resources to obtain, update, or review the patient?s current medications. [If Yes, STOP here]: Yes MIPS - DC The patient has a history of heart transplant or Left Ventricular Assist Device (LVAD). If yes, STOP here.: No The patient has current or prior documentation of left ventricular ejection fraction (LVEF) less than or equal to 40%, or moderate or severely depressed left ventricular systolic function.: No A. The patient was prescribed or already taking an Angiotensin-Converting Enzyme (RENETTA) Inhibitor, or Angiotensin Receptor Beck (ARB).: No B. The patient was prescribed or already taking a beta-beck. [If Yes to Both A & B, STOP here]: No Patient not prescribed/taking RENETTA or ARB, no reason given.: No Patient not prescribed/taking beta-beck, no reason given.: No PROFEE Charge Codes Discharge inpatient/observation: [id number]
--- NOTE | 2025-08-30 13:37 | CM.DPC ---
DCP Discharge Home Per MD, pt with some residual auditory hallucinations but medically stable to discharge home today with outpt f/u and requesting SW support with establishing with PCP and MH/KEVAN resources. SW met bedside with pt and explained role and he confirms he is feeling better and preference is home today and he will call his parents to provide transport home today. Pt confirms that he primarily wants to establish with PCP and preference is [facility] and a male Provider. SW sent message to TCM group requesting assist with trying to find a male provider the pt can establish with for primary care. Pt states that currently he is interested in getting a counselor/therapist for MH but not yet ready to address his KEVAN until he is established with a counselor and agreeable that working on both for dual dx would likely work best. Provided pt with the information on [facility] [place] who provides dual dx treatment and pt appreciative. ORIN updated RN and MD. Carmen Lopez MSW
--- NOTE | 2025-08-30 15:06 | PC.NURSE ---
Patient is A&OX4, restful this a.m. VSS,afebrile he reports pain well controlled today. MD Prescott at bedside clears him for discharge home today on PO antibiotics. He acknowledges plan for follow up with PCP, urology and mental health. He is escorted via w/ch with all of his personal belongings to private vehicle with family members for discharge home today at 1435.
== END 2025-08-30 14:35 | disposition home or self-care (01) | DRG 351 ==
LOC: ED 23:46 → AC 23:47
PROVIDERS: Internal Medicine; Admitting Provider Internal Medicine; Emergency Provider Internal Medicine; Referring Provider Emergency Medicine; Visit Provider Internal Medicine
DX: M62.82 Rhabdomyolysis (principal); E87.1 Hypo-osmolality and hyponatremia; N17.9 Acute kidney failure, unspecified; R44.0 Auditory hallucinations; N13.2 Hydronephrosis with renal and ureteral calculous obstruction; F15.10 Other stimulant abuse, uncomplicated; F12.10 Cannabis abuse, uncomplicated; N30.00 Acute cystitis without hematuria; B96.89 Other specified bacterial agents as the cause of diseases classified elsewhere
CPT/HCPCS: 36415; 71046; 74176; 80048; 80053; 80305; 80320; 80329; 81001; 81003; 82550; 83690; 83735; 84443; 85025; 87077; 87086; 87186; 87635; 96361; 96365; 96372; 99233; 99284; 99285; G0480; J1630; J1956; J2060; J7030